=== PATIENT | female | born 1965 | race Caucasian/White ===

== ENCOUNTER 2018-11-03 10:56 | Emergency (ER) | payer BC ==
--- NOTE | 2018-11-03 11:24 | EDM.PDOC ---
<Ethan Siu - Last Filed: 11/03/18 13:30> ED HPI GENERAL MEDICAL PROBLEM - General Chief Complaint: Chest Pain Stated Complaint: PAIN IN LEFT ARM Time Seen by Provider: 11/03/18 11:12 - History of Present Illness INITIAL COMMENTS - FREE TEXT/NARRATIVE: Pt is seen in ER this morning for episodic chest, back, and shoulder pain. Over the past 2 days the patient has had 2 similar events each in the morning. The first episode started yesterday morning and began around 0730 and and resolved around 1000 the same day. The pain is characterized as a "stabbing" pain located along the lower LSB, L-scapula, and Left deltoid region with radiation down to mid forearm. The pay was intermittent and was primarily aggravated with laying supine. Pain was relieved with sitting up. There also was associated with shortness of breath and nausea. The patients second episode was this morning around the same time with similar symptoms, pt agreed that there was no change in severity or associated symptoms. Pt denies any recent trauma or illness. The patient has history of Cancer of the left brest, hypothyroidism , anxiety, as well as polycythemia vera for which she is currently oncologist. She also has a significant 30+ pk/yr smoking history. - Related Data Allergies Allergy/AdvReac Type Severity Reaction Status Date / Time aspirin Allergy Shaking Verified 11/03/18 11:20 docetaxel Allergy Anaphylactic Verified 11/03/18 11:20 Shock Penicillins Allergy Other Verified 11/03/18 11:20 Home Meds: Home Meds ALPRAZolam [Xanax] 1 mg PO TID PRN 11/03/18 [History] Exemestane 25 mg PO DAILY 11/03/18 [History] Levothyroxine [Synthroid] 100 mcg PO DAILY 11/03/18 [History] Sertraline [Zoloft] 100 mg PO BID 11/03/18 [History] Past Medical History Psychiatric History: Reports: Anxiety Other Hematologic History: Unspecified Blood disorder, History of therapeutic phlebotomy Oncologic (Cancer) History: Reports: Breast (Left breast, Surgical resection and Chemotherapy) - Past Surgical History Other Female Surgeries/Procedures: Resection of Left breast mass and regional lymph nodes Social & Family History - Tobacco Use Smoking Status *Q: Current Every Day Smoker Years of Tobacco use: 30 (Greater than) Packs/Tins Daily: 1 ED ROS GENERAL - Review of Systems Constitutional: Reports: No Symptoms. Denies: Fever, Chills, Night Sweats, Diaphoresis, Weight Loss HEENT: Reports: No Symptoms. Denies: Hearing Loss, Vision Change Respiratory: Reports: Wheezing, Cough (chronic). Denies: Shortness of Breath, Sputum, Hemoptysis Cardiovascular: Denies: Chest Pain, Edema, Lightheadedness, Palpitations Endocrine: Reports: No Symptoms GI/Abdominal: Reports: No Symptoms. Denies: Abdominal Pain, Nausea, Vomiting : Reports: No Symptoms. Denies: Dysuria, Flank Pain Musculoskeletal: Reports: No Symptoms. Denies: Neck Pain, Shoulder Pain, Arm Pain, Back Pain, Muscle Pain, Muscle Stiffness Skin: Reports: No Symptoms. Denies: Cyanosis, Jaundice, Mottled, Pallor, Diaphoresis, Dryness Neurological: Reports: No Symptoms. Denies: Confusion, Dizziness, Headache, Numbness, Paresthesia, Change in Speech, Gait Disturbance Psychiatric: Reports: Anxiety (controled with sertraline and ). Denies: Confusion ED EXAM, GENERAL - Physical Exam Exam: See Below Exam Limited By: No Limitations General Appearance: Alert, No Apparent Distress Eye Exam: Bilateral Eye: EOMI, PERRL Ears: Normal External Exam, Normal TMs Ear Exam: Bilateral Ear: Auricle Normal, Canal Normal, TM normal Head: Atraumatic, Normocephalic Neck: Normal Inspection. No: Carotid Bruit, Lymphadenopathy (L), Lymphadenopathy (R) Respiratory/Chest: No Respiratory Distress, Lungs Clear, Normal Breath Sounds, No Accessory Muscle Use, Other (Reproduction of some pain over left sternal boarder and left lateral boarder of posterior scapula). No: Crackles, Rales, Rhonchi, Wheezing, Pleural Rub Cardiovascular: Normal Peripheral Pulses, Regular Rate, Rhythm, No Edema, No Gallop, No JVD, No Murmur, No Rub. No: Friction Rub Peripheral Pulses: 2+: Carotid (L), Carotid (R), Brachial (L), Brachial (R), Radial (L), Radial (R) GI/Abdominal: Normal Bowel Sounds, Soft, Non-Tender, No Organomegaly, No Distention, No Abnormal Bruit, No Mass Extremities: Normal Inspection, No Pedal Edema Neurological: Alert, Oriented, CN II-XII Intact, Normal Cognition, Normal Gait, Normal Reflexes, No Motor/Sensory Deficits Psychiatric: Normal Affect, Normal Mood. No: Anxious Skin Exam: Warm, Dry, Intact, Normal Color, No Rash. No: Cyanosis, Ecchymosis, Jaundice, Mottled, Pallor Lymphatic: No Adenopathy (of the Head Neck or [place] bilaterally) Course - Vital Signs Last Recorded V/S: Last Vital Signs Temp 98.2 F 11/03/18 11:16 Pulse 68 11/03/18 13:23 Resp 16 11/03/18 11:16 BP 145/107 H 11/03/18 13:23 Pulse Ox 95 11/03/18 11:16 - Orders/Labs/Meds Orders: Active Orders 24 hr Category Date Time Status EKG Documentation Completion [RC] STAT Care 11/03/18 11:12 Active Peripheral IV Care [RC] . DIRECTED Care 11/03/18 13:11 Active Peripheral IV Insertion Adult [OM.PC] Routine Oth 11/03/18 13:11 Ordered Labs: Laboratory Tests 11/03/18 11/03/18 11/03/18 Range/Units 12:10 12:10 12:10 WBC 6.69 (3.98-10.04) K/mm3 RBC 6.30 H (3.98-5.22) M/mm3 Hgb 15.5 (11.2-15.7) gm/L Hct 50.3 H (34.1-44.9) % MCV 79.8 (79.4-94.8) fl MCH 24.6 L (25.6-32.2) pg MCHC 30.8 L (32.2-35.5) g/dl RDW Std Deviation 48.8 H (36.4-46.3) fL Plt Count 263 (182-369) K/mm3 MPV 10.7 (9.4-12.3) fl Neutrophils % (Manual) 83 H (40-60) % Band Neutrophils % 0 (0-10) % Lymphocytes % (Manual) 11 L (20-40) % Atypical Lymphs % 0 % Monocytes % (Manual) 6 (2-10) % Eosinophils % (Manual) 0 L (0.7-5.8) % Basophils % (Manual) 0 L (0.1-1.2) Platelet Estimate Adequate RBC Morph Comment Normal PT 10.8 (9.5-12.1) SECONDS INR 0.99 APTT 24 (24-31) SECONDS D-Dimer, Quantitative 0.22 (0.19-0.50) mg/L Sodium 142 (136-145) mEq/L Potassium 3.8 (3.5-5.1) mEq/L Chloride 103 (98-107) mEq/L Carbon Dioxide 32 (21-32) mEq/L Anion Gap 10.8 (5-15) BUN 8 (7-18) mg/dL Creatinine 0.8 (0.55-1.02) mg/dL Est Cr Clr Drug Dosing 69.42 mL/min Estimated GFR (MDRD) > 60 (>60) mL/min BUN/Creatinine Ratio 10.0 L (14-18) Glucose 113 H (74-106) mg/dL Calcium 10.1 (8.5-10.1) mg/dL Total Bilirubin 0.5 (0.2-1.0) mg/dL AST 46 H (15-37) U/L ALT 29 (14-59) U/L Alkaline Phosphatase 72 (46-116) U/L Troponin I 1.995 H* (0.00-0.056) ng/mL NT-Pro-B Natriuret Pep (0-125) pg/mL Total Protein 7.7 (6.4-8.2) g/dl Albumin 4.0 (3.4-5.0) g/dl Globulin 3.7 gm/dL Albumin/Globulin Ratio 1.1 (1-2) 11/03/18 Range/Units 12:10 WBC (3.98-10.04) K/mm3 RBC (3.98-5.22) M/mm3 Hgb (11.2-15.7) gm/L Hct (34.1-44.9) % MCV (79.4-94.8) fl MCH (25.6-32.2) pg MCHC (32.2-35.5) g/dl RDW Std Deviation (36.4-46.3) fL Plt Count (182-369) K/mm3 MPV (9.4-12.3) fl Neutrophils % (Manual) (40-60) % Band Neutrophils % (0-10) % Lymphocytes % (Manual) (20-40) % Atypical Lymphs % % Monocytes % (Manual) (2-10) % Eosinophils % (Manual) (0.7-5.8) % Basophils % (Manual) (0.1-1.2) Platelet Estimate RBC Morph Comment PT (9.5-12.1) SECONDS INR APTT (24-31) SECONDS D-Dimer, Quantitative (0.19-0.50) mg/L Sodium (136-145) mEq/L Potassium (3.5-5.1) mEq/L Chloride (98-107) mEq/L Carbon Dioxide (21-32) mEq/L Anion Gap (5-15) BUN (7-18) mg/dL Creatinine (0.55-1.02) mg/dL Est Cr Clr Drug Dosing mL/min Estimated GFR (MDRD) (>60) mL/min BUN/Creatinine Ratio (14-18) Glucose (74-106) mg/dL Calcium (8.5-10.1) mg/dL Total Bilirubin (0.2-1.0) mg/dL AST (15-37) U/L ALT (14-59) U/L Alkaline Phosphatase (46-116) U/L Troponin I (0.00-0.056) ng/mL NT-Pro-B Natriuret Pep 1332 H (0-125) pg/mL Total Protein (6.4-8.2) g/dl Albumin (3.4-5.0) g/dl Globulin gm/dL Albumin/Globulin Ratio (1-2) Meds: Medications Discontinued Medications Generic Name Dose Route Start Last Admin Trade Name Freq PRN Reason Stop Dose Admin Aspirin 324 mg 11/03/18 13:11 11/03/18 13:23 Aspirin PO 11/03/18 13:12 324 mg ONETIME ONE Administration Heparin Sodium (Porcine) 4,000 units 11/03/18 13:32 11/03/18 13:39 Heparin Sodium IVPUSH 11/03/18 13:33 4,000 units ONETIME ONE Administration Heparin Sodium/Dextrose 25,000 units in 500 mls @ 16.22 mls/hr 11/03/18 13:30 11/03/18 13:39 Heparin 25,000 Units In D5w 500 Ml IV 12 units/kg/hr TITRATE SHUN 16.22 mls/hr Administration Protocol 12 UNITS/KG/HR Metoprolol Tartrate 5 mg 11/03/18 13:11 11/03/18 13:23 Lopressor IVPUSH 11/03/18 13:12 5 mg ONETIME ONE Administration Simvastatin 80 mg 11/03/18 13:27 11/03/18 13:41 Zocor PO 11/03/18 13:28 80 mg ONETIME ONE Administration Sodium Chloride 10 ml 11/03/18 13:11 11/03/18 13:27 Saline Flush FLUSH 10 ml ASDIRECTED PRN Administration Keep Vein Open Departure - Departure Disposition: DC/Tfer to Acute Hospital 02 Clinical Impression: NSTEMI (non-ST elevated myocardial infarction) Referrals: Evelyne Moreno NP [Primary Care Provider] - Forms: ED Department Discharge - My Orders Last 24 Hours: My Active Orders 11/03/18 11:12 EKG Documentation Completion [RC] STAT 11/03/18 13:11 Peripheral IV Care [RC] . DIRECTED Peripheral IV Insertion Adult [OM.PC] Routine - Assessment/Plan Last 24 Hours: My Active Orders 11/03/18 11:12 EKG Documentation Completion [RC] STAT 11/03/18 13:11 Peripheral IV Care [RC] . DIRECTED Peripheral IV Insertion Adult [OM.PC] Routine <Raeann Lopez - Last Filed: 11/03/18 22:59> ED HPI GENERAL MEDICAL PROBLEM - General Source of Information: Reports: Patient, RN Notes Reviewed History Limitations: Reports: No Limitations - History of Present Illness INITIAL COMMENTS - FREE TEXT/NARRATIVE: I have read and reviewed the student's HPI and exam and agree with Torrey ADEN student. Chest Pain Score (Numeric/FACES): 8 ED ROS GENERAL - Review of Systems Review Of Systems: See Below ED EXAM, GENERAL - Physical Exam Exam: See Below Exam Limited By: No Limitations General Appearance: Alert, WD/WN, No Apparent Distress Eye Exam: Bilateral Eye: EOMI Ears: Normal External Exam, Normal TMs Nose: Normal Inspection Throat/Mouth: Normal Inspection, No Airway Compromise Head: Atraumatic, Normocephalic Neck: Normal Inspection Respiratory/Chest: No Respiratory Distress, Lungs Clear, Normal Breath Sounds, No Accessory Muscle Use Cardiovascular: Normal Peripheral Pulses, Regular Rate, Rhythm, No Murmur GI/Abdominal: Normal Bowel Sounds, Soft, Non-Tender, No Organomegaly, No Distention, No Abnormal Bruit, No Mass Extremities: Normal Inspection, No Pedal Edema, Normal Capillary Refill Neurological: Alert, Oriented, CN II-XII Intact, Normal Cognition, Normal Gait, Normal Reflexes, No Motor/Sensory Deficits Psychiatric: Normal Affect, Normal Mood Skin Exam: Warm, Dry, Intact, Normal Color, No Rash Lymphatic: No Adenopathy EKG INTERPRETATION EKG Date: 11/03/18 Time: 11:09 Rhythm: NSR Rate (Beats/Min): 82 [place]: Normal P-Wave: Present QRS: Normal ST-T: Normal QT: Normal EKG Interpretation Comments: Reviewed with Dr. Bell Course - Orders/Labs/Meds Labs: Laboratory Tests 11/03/18 11/03/18 11/03/18 Range/Units 12:10 12:10 12:10 WBC 6.69 (3.98-10.04) K/mm3 RBC 6.30 H (3.98-5.22) M/mm3 Hgb 15.5 (11.2-15.7) gm/L Hct 50.3 H (34.1-44.9) % MCV 79.8 (79.4-94.8) fl MCH 24.6 L (25.6-32.2) pg MCHC 30.8 L (32.2-35.5) g/dl RDW Std Deviation 48.8 H (36.4-46.3) fL Plt Count 263 (182-369) K/mm3 MPV 10.7 (9.4-12.3) fl Neutrophils % (Manual) 83 H (40-60) % Band Neutrophils % 0 (0-10) % Lymphocytes % (Manual) 11 L (20-40) % Atypical Lymphs % 0 % Monocytes % (Manual) 6 (2-10) % Eosinophils % (Manual) 0 L (0.7-5.8) % Basophils % (Manual) 0 L (0.1-1.2) Platelet Estimate Adequate RBC Morph Comment Normal PT 10.8 (9.5-12.1) SECONDS INR 0.99 APTT 24 (24-31) SECONDS D-Dimer, Quantitative 0.22 (0.19-0.50) mg/L Sodium 142 (136-145) mEq/L Potassium 3.8 (3.5-5.1) mEq/L Chloride 103 (98-107) mEq/L Carbon Dioxide 32 (21-32) mEq/L Anion Gap 10.8 (5-15) BUN 8 (7-18) mg/dL Creatinine 0.8 (0.55-1.02) mg/dL Est Cr Clr Drug Dosing 69.42 mL/min Estimated GFR (MDRD) > 60 (>60) mL/min BUN/Creatinine Ratio 10.0 L (14-18) Glucose 113 H (74-106) mg/dL Calcium 10.1 (8.5-10.1) mg/dL Total Bilirubin 0.5 (0.2-1.0) mg/dL AST 46 H (15-37) U/L ALT 29 (14-59) U/L Alkaline Phosphatase 72 (46-116) U/L Troponin I 1.995 H* (0.00-0.056) ng/mL NT-Pro-B Natriuret Pep (0-125) pg/mL Total Protein 7.7 (6.4-8.2) g/dl Albumin 4.0 (3.4-5.0) g/dl Globulin 3.7 gm/dL Albumin/Globulin Ratio 1.1 (1-2) 11/03/18 Range/Units 12:10 WBC (3.98-10.04) K/mm3 RBC (3.98-5.22) M/mm3 Hgb (11.2-15.7) gm/L Hct (34.1-44.9) % MCV (79.4-94.8) fl MCH (25.6-32.2) pg MCHC (32.2-35.5) g/dl RDW Std Deviation (36.4-46.3) fL Plt Count (182-369) K/mm3 MPV (9.4-12.3) fl Neutrophils % (Manual) (40-60) % Band Neutrophils % (0-10) % Lymphocytes % (Manual) (20-40) % Atypical Lymphs % % Monocytes % (Manual) (2-10) % Eosinophils % (Manual) (0.7-5.8) % Basophils % (Manual) (0.1-1.2) Platelet Estimate RBC Morph Comment PT (9.5-12.1) SECONDS INR APTT (24-31) SECONDS D-Dimer, Quantitative (0.19-0.50) mg/L Sodium (136-145) mEq/L Potassium (3.5-5.1) mEq/L Chloride (98-107) mEq/L Carbon Dioxide (21-32) mEq/L Anion Gap (5-15) BUN (7-18) mg/dL Creatinine (0.55-1.02) mg/dL Est Cr Clr Drug Dosing mL/min Estimated GFR (MDRD) (>60) mL/min BUN/Creatinine Ratio (14-18) Glucose (74-106) mg/dL Calcium (8.5-10.1) mg/dL Total Bilirubin (0.2-1.0) mg/dL AST (15-37) U/L ALT (14-59) U/L Alkaline Phosphatase (46-116) U/L Troponin I (0.00-0.056) ng/mL NT-Pro-B Natriuret Pep 1332 H (0-125) pg/mL Total Protein (6.4-8.2) g/dl Albumin (3.4-5.0) g/dl Globulin gm/dL Albumin/Globulin Ratio (1-2) Meds: Medications Discontinued Medications Generic Name Dose Route Start Last Admin Trade Name Freq PRN Reason Stop Dose Admin Aspirin 324 mg 11/03/18 13:11 11/03/18 13:23 Aspirin PO 11/03/18 13:12 324 mg ONETIME ONE Administration Heparin Sodium (Porcine) 4,000 units 11/03/18 13:32 11/03/18 13:39 Heparin Sodium IVPUSH 11/03/18 13:33 4,000 units ONETIME ONE Administration Heparin Sodium/Dextrose 25,000 units in 500 mls @ 16.22 mls/hr 11/03/18 13:30 11/03/18 13:39 Heparin 25,000 Units In D5w 500 Ml IV 12 units/kg/hr TITRATE SHUN 16.22 mls/hr Administration Protocol 12 UNITS/KG/HR Metoprolol Tartrate 5 mg 11/03/18 13:11 11/03/18 13:23 Lopressor IVPUSH 11/03/18 13:12 5 mg ONETIME ONE Administration Simvastatin 80 mg 11/03/18 13:27 11/03/18 13:41 Zocor PO 11/03/18 13:28 80 mg ONETIME ONE Administration Sodium Chloride 10 ml 11/03/18 13:11 11/03/18 13:27 Saline Flush FLUSH 10 ml ASDIRECTED PRN Administration Keep Vein Open - Re-Assessments/Exams Free Text/Narrative Re-Assessment/Exam: 11/03/18 11:50 Patient presents to the ED for evaluation of left arm pain/chest pain. Have ordered a cardiac workup to include a CBC, CMP, troponin, d-dimer, PT/PTT/INR, BNP for further evaluation of her symptoms. Although I suspect this to be musculoskeletal in nature I would like to rule out any cardiac or pulmonary involvement. The patient states that she has a history of polycythemia vera and feels as if her blood feels thick again, she does have an appointment with her cancer doctor on November 18 but is worried that she might need to have a therapeutic phlebotomy sooner than that. She states that she sees Evelyne Moreno in clinic and has had therapeutic phlebotomies done per her order before. If her cardiac workup comes back WNL, I would suggest that she be seen by Evelyne Moreno sooner than the November 18 appointment with her cancer doctor for possible therapeutic phlebotomy. 11/03/18 13:32 Patient's labs have returned and her troponin is elevated at 1.995, BNP is 1300. It appears that she is having a non-STEMI I have contacted [facility] for this Dr. Clark finance effectiveness manager, Dr. [facility] hospitalist has accepted the patient for inpatient care. They've recommended IV metoprolol 5 mg IV, 325mg of aspirin, heparin bolus, and simvastatin. These orders have been placed. Patient will be transferred via ambulance. Patient's chest x-ray shows mild emphysematous changes but nothing acute is appreciated. Departure - Departure Time of Disposition: 13:34 Reason for Transfer *Q: Other Condition: Fair
[2018-11-03] MEDS ORDERED: Sodium Chloride 0.9% 10 ML Syringe FLUSH PRN (13:11)
[2018-11-03] MEDS ORDERED: Metoprolol Tartrate 5 MG/5 ML SDV IVPUSH ONE (13:11)
[2018-11-03] MEDS ORDERED: Aspirin 81 MG Tab.Chew PO ONE (13:11)
[2018-11-03] MEDS ORDERED: Simvastatin 40 MG Tab PO ONE (13:27)
[2018-11-03] MEDS ORDERED: Heparin Sodium/D5W 25,000 UNITS/500 ML BAG IV SCH (13:30)
--- NOTE | 2018-11-03 13:31 | CR ---
Chest: Two views of the chest were obtained. Comparison: Previous chest x-ray of 10/09/11. Heart size and mediastinum are normal. Lungs are hyperinflated compatible with emphysematous change. Minimal scoliosis is noted within the spine. Impression: 1. Emphysematous change. Nothing acute is appreciated on two-view chest x-ray. Diagnostic code #2
[2018-11-03] MEDS ORDERED: Heparin Sodium 5,000 Units/ML Vial IVPUSH ONE (13:32)
== END 2018-11-03 14:15 ==
LOC: JD.ED 10:56
DX: I21.4 Non-ST elevation (NSTEMI) myocardial infarction (principal); F41.9 Anxiety disorder, unspecified; F17.210 Nicotine dependence, cigarettes, uncomplicated; Z79.899 Other long term (current) drug therapy; Z88.6 Allergy status to analgesic agent; Z88.0 Allergy status to penicillin; Z88.8 Allergy status to other drugs, medicaments and biological substances
CPT/HCPCS: 36415; 71046; 80053; 83880; 84484; 85007; 85027; 85379; 85610; 85730; 93005; 96365; 96375; 99285; A9270; J1644; J3490; 93010

== ENCOUNTER 2018-11-09 08:38 | Emergency (ER) | payer BC ==
[2018-11-09] MEDS ORDERED: Nitroglycerin 0.4 MG Tab.SL SL ONE (08:52)
[2018-11-09] MEDS ORDERED: Sodium Chloride 0.9% 10 ML Syringe FLUSH PRN (08:52)
--- NOTE | 2018-11-09 09:33 | EDM.PDOC ---
ED HPI GENERAL MEDICAL PROBLEM - General Chief Complaint: Chest Pain Stated Complaint: HAVING SYMPTOMS OF A HEART ATTACK Time Seen by Provider: 11/09/18 08:43 Source of Information: Reports: Patient History Limitations: Reports: No Limitations - History of Present Illness INITIAL COMMENTS - FREE TEXT/NARRATIVE: The patient presents with chest pain and shortness of breath. The patient woke up at 6:30am with this. She recently had a nonSTEMI. She was seen here last week and found to have an elevated troponin. She was sent to [place] and she had a stent. She was discharged on and she was doing good until this morning. She has no fever, chills, cough, congestion or runny nose. She quit smoking last week. She has no history of HTN, high cholesterol or diabetes. She took an aspirin and nitro for pain. That helped some. Onset: Gradual Duration: Hour(s): Location: Reports: Chest Quality: Reports: Other (pain) Severity: Moderate Improves with: Reports: None Worsens with: Reports: None Associated Symptoms: Reports: Chest Pain, Shortness of Breath. Denies: Cough, Fever/Chills, Headaches, Nausea/Vomiting Treatments SENIOR CLIMATE ADVISOR: Reports: Nitroglycerin Chest Pain Score (Numeric/FACES): 8 - Related Data Allergies Allergy/AdvReac Type Severity Reaction Status Date / Time aspirin Allergy Shaking Verified 11/09/18 08:58 docetaxel Allergy Anaphylactic Verified 11/09/18 08:58 Shock Penicillins Allergy Other Verified 11/09/18 08:58 Home Meds: Home Meds ALPRAZolam [Xanax] 1 mg PO TID PRN 11/03/18 [History] Exemestane 25 mg PO DAILY 11/03/18 [History] Levothyroxine [Synthroid] 100 mcg PO DAILY 11/03/18 [History] Sertraline [Zoloft] 100 mg PO BID 11/03/18 [History] Metoprolol Succinate [Toprol Xl] 12.5 mg PO BID 11/09/18 [History] Nitroglycerin 0.4 mg SL ASDIRECTED 11/09/18 [History] Ticagrelor [Brilinta] 90 mg PO DAILY 11/09/18 [History] atorvaSTATin [Lipitor] 40 mg PO DAILY 11/09/18 [History] Past Medical History HEENT History: Reports: Impaired Vision Psychiatric History: Reports: Anxiety Endocrine/Metabolic History: Reports: Hypothyroidism Other Hematologic History: Unspecified Blood disorder, History of therapeutic phlebotomy Oncologic (Cancer) History: Reports: Breast (Left breast, Surgical resection and Chemotherapy) - Past Surgical History Other Female Surgeries/Procedures: Resection of Left breast mass and regional lymph nodes ED ROS GENERAL - Review of Systems Review Of Systems: See Below Constitutional: Reports: No Symptoms HEENT: Reports: No Symptoms Respiratory: Reports: Shortness of Breath Cardiovascular: Reports: Chest Pain Endocrine: Reports: No Symptoms GI/Abdominal: Reports: No Symptoms : Reports: No Symptoms Musculoskeletal: Reports: No Symptoms ED EXAM, GENERAL - Physical Exam Exam: See Below Exam Limited By: No Limitations General Appearance: Alert, No Apparent Distress Ears: Normal External Exam Nose: Normal Inspection Head: Atraumatic, Normocephalic Neck: Normal Inspection Respiratory/Chest: No Respiratory Distress, Lungs Clear, Normal Breath Sounds Cardiovascular: Regular Rate, Rhythm, No Edema, No Murmur GI/Abdominal: Soft, Non-Tender, No Organomegaly, No Mass Back Exam: Normal Inspection Extremities: Other (Ecchymosis to the rigt forearm) EKG INTERPRETATION EKG Date: 11/09/18 Time: 08:44 Rhythm: NSR Rate (Beats/Min): 64 [place]: Normal P-Wave: Present QRS: Normal ST-T: Normal QT: Normal EKG Interpretation Comments: Q waves in the inferior leads Course - Vital Signs Last Recorded V/S: Last Vital Signs Temp 98.5 F 11/09/18 08:58 Pulse 63 11/09/18 08:58 Resp 18 11/09/18 08:58 BP 123/81 11/09/18 09:18 Pulse Ox 97 11/09/18 08:58 - Orders/Labs/Meds Orders: Active Orders 24 hr Category Date Time Status Cardiac Monitoring [RC] . DIRECTED Care 11/09/18 08:52 Active EKG Documentation Completion [RC] STAT Care 11/09/18 08:53 Active Oxygen Therapy [RC] PRN Care 11/09/18 08:52 Active Peripheral IV Care [RC] . DIRECTED Care 11/09/18 08:53 Active Sodium Chloride 0.9% [Saline Flush] Med 11/09/18 08:52 Active 10 ml FLUSH ASDIRECTED PRN Peripheral IV Insertion Adult [OM.PC] Stat Oth 11/09/18 08:52 Ordered Medication Orders Sodium Chloride (Saline Flush) 10 ml FLUSH ASDIRECTED PRN PRN Reason: Keep Vein Open Last Admin: 11/09/18 09:18 Dose: 10 ml Labs: Laboratory Tests 11/09/18 11/09/18 Range/Units 08:59 08:59 WBC 6.93 (3.98-10.04) K/mm3 RBC 5.32 H (3.98-5.22) M/mm3 Hgb 12.9 (11.2-15.7) gm/L Hct 42.9 (34.1-44.9) % MCV 80.6 (79.4-94.8) fl MCH 24.2 L (25.6-32.2) pg MCHC 30.1 L (32.2-35.5) g/dl RDW Std Deviation 50.6 H (36.4-46.3) fL Plt Count 240 (182-369) K/mm3 MPV 11.3 (9.4-12.3) fl Neut % (Auto) 70.1 (34.0-71.1) % Lymph % (Auto) 16.9 L (19.3-51.7) % [place] % (Auto) 10.4 (4.7-12.5) % Eos % (Auto) 1.9 (0.7-5.8) Baso % (Auto) 0.6 (0.1-1.2) % Neut # (Auto) 4.86 (1.56-6.13) K/mm3 Lymph # (Auto) 1.17 L (1.18-3.74) K/mm3 [place] # (Auto) 0.72 H (0.24-0.36) K/mm3 Eos # (Auto) 0.13 (0.04-0.36) K/mm3 Baso # (Auto) 0.04 (0.01-0.08) K/mm3 Sodium 142 (136-145) mEq/L Potassium 3.6 (3.5-5.1) mEq/L Chloride 103 (98-107) mEq/L Carbon Dioxide 30 (21-32) mEq/L Anion Gap 12.6 (5-15) BUN 11 (7-18) mg/dL Creatinine 0.9 (0.55-1.02) mg/dL Est Cr Clr Drug Dosing TNP Estimated GFR (MDRD) > 60 (>60) mL/min BUN/Creatinine Ratio 12.2 L (14-18) Glucose 96 (74-106) mg/dL Calcium 8.8 (8.5-10.1) mg/dL Total Bilirubin 0.4 (0.2-1.0) mg/dL AST 32 (15-37) U/L ALT 36 (14-59) U/L Alkaline Phosphatase 56 (46-116) U/L Troponin I 17.554 H* (0.00-0.056) ng/mL Total Protein 7.3 (6.4-8.2) g/dl Albumin 3.3 L (3.4-5.0) g/dl Globulin 4.0 gm/dL Albumin/Globulin Ratio 0.8 L (1-2) Meds: Medications Generic Name Dose Route Start Last Admin Trade Name Freq PRN Reason Stop Dose Admin Sodium Chloride 10 ml 11/09/18 08:52 11/09/18 09:18 Saline Flush FLUSH 10 ml ASDIRECTED PRN Administration Keep Vein Open Discontinued Medications Generic Name Dose Route Start Last Admin Trade Name Freq PRN Reason Stop Dose Admin Nitroglycerin 0.4 mg 11/09/18 08:52 11/09/18 09:18 Nitrostat SL 11/09/18 08:53 0.4 mg ONETIME ONE Administration - Re-Assessments/Exams Free Text/Narrative Re-Assessment/Exam: 11/09/18 09:33 I ordered an IV saline lock, EKG, CXR, labs, and nitro. She took aspirin and nitro at home. 11/09/18 10:21 Her EKG shows a NSR with some Q waves in the inferior leads. Her CXR looks good. Her CBC and CMP look good. Her troponin I was elevated at 17.554. This could be still elevated from the cath. I called [facility] in [place] and talked with the store sales leader car electronics installer Dr Shaver. He also did the heart cath. He recommended we send her down and they will trend the troponins and see what to do from there. Her pain is better but it still will hurt when she takes a deep breath. I will be sending her by ambulance. I will send her by ambulance. He did not recommend heparin at this time. 11/09/18 10:27 I also talked with the hospitalist Dr Macdonald and she wanted a D-dimer. I will add that. Departure - Departure Time of Disposition: 10:30 Disposition: DC/Tfer to Acute Hospital 02 Reason for Transfer *Q: Other Condition: Serious Clinical Impression: Elevated troponin I level Chest pain Qualifiers: Chest pain type: unspecified Qualified Code(s): R07.9 - Chest pain, unspecified Referrals: Evelyne Moreno NP [Primary Care Provider] - Forms: ED Department Discharge - My Orders Last 24 Hours: My Active Orders 11/09/18 08:52 Cardiac Monitoring [RC] . DIRECTED Oxygen Therapy [RC] PRN Sodium Chloride 0.9% [Saline Flush] 10 ml FLUSH ASDIRECTED PRN Peripheral IV Insertion Adult [OM.PC] Stat 11/09/18 08:53 EKG Documentation Completion [RC] STAT Peripheral IV Care [RC] . DIRECTED - Assessment/Plan Last 24 Hours: My Active Orders 11/09/18 08:52 Cardiac Monitoring [RC] . DIRECTED Oxygen Therapy [RC] PRN Sodium Chloride 0.9% [Saline Flush] 10 ml FLUSH ASDIRECTED PRN Peripheral IV Insertion Adult [OM.PC] Stat 11/09/18 08:53 EKG Documentation Completion [RC] STAT Peripheral IV Care [RC] . DIRECTED
--- NOTE | 2018-11-09 09:45 | CR ---
Chest: Portable view of the chest was obtained. Comparison: Prior chest x-ray of 11/03/18. Heart size appears within normal limits for portable technique. Lungs are clear with no acute parenchymal change. Bony structures are grossly intact. Impression: 1. Nothing acute is seen on portable chest x-ray. Diagnostic code #1
[2018-11-09] MEDS ORDERED: Heparin Sodium 5,000 Units/ML Vial IVPUSH ONE (10:35)
[2018-11-09] MEDS ORDERED: Heparin Sodium/D5W 25,000 UNITS/500 ML BAG IV SCH (10:45)
== END 2018-11-09 11:32 ==
LOC: JD.ED 08:38
DX: R07.9 Chest pain, unspecified (principal); R79.89 Other specified abnormal findings of blood chemistry; R58 Hemorrhage, not elsewhere classified; E03.9 Hypothyroidism, unspecified; I25.2 Old myocardial infarction; Z95.5 Presence of coronary angioplasty implant and graft; Z79.899 Other long term (current) drug therapy; Z88.0 Allergy status to penicillin; Z88.6 Allergy status to analgesic agent; Z88.8 Allergy status to other drugs, medicaments and biological substances
CPT/HCPCS: 36415; 71045; 80053; 84484; 85025; 85379; 93005; 96365; 99285; A9270; J1644; 93010

== ENCOUNTER 2021-03-26 13:10 | Observation (INO) | payer BC ==
[2021-03-26] MEDS ORDERED: Sodium Chloride 0.9% 1,000 ML IV STA ×2 (14:16→15:57)
[2021-03-26] MEDS ORDERED: Ondansetron 4 MG/2 ML SDV IVPUSH ONE (14:16)
[2021-03-26] MEDS ORDERED: Sodium Chloride 0.9% 10 ML Syringe FLUSH PRN (14:16)
--- NOTE | 2021-03-26 14:38 | EDM.PDOC ---
ED HPI GENERAL MEDICAL PROBLEM - General Chief Complaint: Gastrointestinal Problem Stated Complaint: CHILLS NAUSEA VOMITING Time Seen by Provider: 03/26/21 13:39 Source of Information: Reports: Patient, RN Notes Reviewed History Limitations: Reports: No Limitations - History of Present Illness INITIAL COMMENTS - FREE TEXT/NARRATIVE: Patient is a 56-year-old female presenting to the emergency department with complaints of 3-day history of nausea, vomiting, and diarrhea. She reports "dry heaves "fairly frequently, however she has only had 4 episodes of actual vomiting. She has been able to keep down food and liquids. She has had chills but no known fever. She has a history of tremors for the last 10 years which she has been told is either result of her chemotherapy or that her B12 got too low. She feels that over the last few days, her tremor has worsened. Has some generalized abdominal discomfort with heaving but no pain at rest. She has had some intermittent diarrhea as well. She has been unable to take any [id number] nausea medications as they contain aspirin which she states will make her tremors worse. Patient did have both Covid vaccinations. - Related Data Allergies Allergy/AdvReac Type Severity Reaction Status Date / Time docetaxel Allergy Anaphylactic Verified 03/26/21 13:45 Shock Penicillins Allergy Other Verified 03/26/21 13:45 aspirin AdvReac Shaking Verified 03/27/21 11:21 levofloxacin [From Levaquin] AdvReac Pain Verified 03/27/21 11:21 Home Meds: Home Meds Sertraline [Zoloft] 100 mg PO BID 11/03/18 [History] Metoprolol Succinate [Toprol Xl] 25 mg PO BID 11/09/18 [History] Nitroglycerin 0.4 mg SL ASDIRECTED 11/09/18 [History] Ticagrelor [Brilinta] 90 mg PO BID 11/09/18 [History] atorvaSTATin [Lipitor] 40 mg PO DAILY 11/09/18 [History] Aspirin [[place] Aspirin] 81 mg PO DAILY 11/26/18 [History] ALPRAZolam [Xanax] 1 mg PO TID PRN 03/27/21 [History] Acetaminophen with Codeine [Acetaminophen-Cod #3] 1 tab PO Q4HR PRN 03/27/21 [History] Furosemide [Lasix] 20 mg PO DAILY 03/27/21 [History] Gabapentin [Neurontin] 100 mg PO TID 03/27/21 [History] Multivit-Minerals/Folic Acid [Multivitamin Gummies] 1 tab PO DAILY 03/27/21 [History] cilostazoL [Cilostazol] 100 mg PO BID 03/27/21 [History] Past Medical History HEENT History: Reports: Impaired Vision Psychiatric History: Reports: Anxiety Endocrine/Metabolic History: Reports: Hypothyroidism Other Hematologic History: Unspecified Blood disorder, History of therapeutic phlebotomy Oncologic (Cancer) History: Reports: Breast - Past Surgical History Other Female Surgeries/Procedures: Resection of Left breast mass and regional lymph nodes Oncologic Surgical History: Reports: Mastectomy Social & Family History - Tobacco Use Tobacco Use Status *Q: Current Every Day Tobacco User Years of Tobacco use: 23 Packs/Tins Daily: 0.5 - Recreational Drug Use Recreational Drug Use: Yes Drug Use in Last 12 Months: Yes Recreational Drug Type: Reports: Marijuana/Hashish Recreational Drug Use Frequency: Weekly ED ROS GENERAL - Review of Systems Review Of Systems: Comprehensive ROS is negative, except as noted in HPI. ED EXAM, GI/ABD - Physical Exam Exam: See Below Exam Limited By: No Limitations General Appearance: Alert, WD/WN, No Apparent Distress Respiratory/Chest: No Respiratory Distress, Lungs Clear, Normal Breath Sounds, No Accessory Muscle Use, Chest Non-Tender Cardiovascular: Normal Peripheral Pulses, Regular Rate, Rhythm, No Edema, No Gallop, No JVD, No Murmur, No Rub GI/Abdominal Exam: Normal Bowel Sounds, Soft, No Organomegaly, No Distention, No Abnormal Bruit, No Mass, Pelvis Stable, Tender (mild generalized tenderness) Neurological: Alert, Oriented, CN II-XII Intact, Normal Cognition, Normal Reflexes, No Motor/Sensory Deficits, Other (slight tremor) Psychiatric: Normal Affect, Normal Mood Skin Exam: Warm, Dry, Intact, Normal Color, No Rash #1 Interpretation EKG Date: 03/26/21 Time: 14:46 Rhythm: NSR Rate (Beats/Min): 62 [place]: Normal P-Wave: Present QRS: Normal ST-T: Normal QT: Normal EKG Interpretation Comments: Sinus rhythm at 62/min. Nonspecific intraventricular conduction delay Decreased voltage limb leads T wave flattening in limb leads and inverted in V1 through V6-consider anterior wall ischemia-QTC mildly prolonged EKG interpreted by Dr. Lolis VALDES Course - Vital Signs Last Recorded V/S: Last Vital Signs Temp 97.5 F 03/27/21 12:29 Pulse 55 L 03/27/21 12:29 Resp 16 03/27/21 12:29 BP 83/58 L 03/27/21 12:29 Pulse Ox 94 L 03/27/21 12:29 - Orders/Labs/Meds Orders: Active Orders 24 hr Category Date Time Status STOOL CULTURE/SHIGA TOXIN [MREF] Stat Lab 03/27/21 05:45 Received Labs: Laboratory Tests 03/26/21 03/26/21 03/26/21 Range/Units 14:16 15:10 15:10 WBC 4.58 (3.98-10.04) K/mm3 RBC 4.62 (3.98-5.22) M/mm3 Hgb 15.3 D (11.2-15.7) gm/dl Hct 42.4 (34.1-44.9) % MCV 91.8 D (79.4-94.8) fl MCH 33.1 H (25.6-32.2) pg MCHC 36.1 H (32.2-35.5) g/dl RDW Std Deviation 43.0 (36.4-46.3) fL Plt Count 217 (182-369) K/mm3 MPV 10.5 (9.4-12.3) fl Neut % (Auto) 70.3 (34.0-71.1) % Lymph % (Auto) 22.7 (19.3-51.7) % [place] % (Auto) 6.8 (4.7-12.5) % Eos % (Auto) 0 L (0.7-5.8) Baso % (Auto) 0.2 (0.1-1.2) % Neut # (Auto) 3.22 (1.56-6.13) K/mm3 Lymph # (Auto) 1.04 L (1.18-3.74) K/mm3 [place] # (Auto) 0.31 (0.24-0.36) K/mm3 Eos # (Auto) 0.00 L (0.04-0.36) K/mm3 Baso # (Auto) 0.01 (0.01-0.08) K/mm3 Sodium 138 (136-145) mEq/L Potassium 2.3 L* (3.5-5.1) mEq/L Chloride 94 L (98-107) mEq/L Carbon Dioxide 35 H (21-32) mEq/L Anion Gap 11.3 (5-15) BUN 15 (7-18) mg/dL Creatinine 1.1 H (0.55-1.02) mg/dL Est Cr Clr Drug Dosing 44.45 mL/min Estimated GFR (MDRD) 51 (>60) mL/min BUN/Creatinine Ratio 13.6 L (14-18) Glucose 103 H (70-99) mg/dL Calcium 8.3 L (8.5-10.1) mg/dL Magnesium 1.9 (1.8-2.4) mg/dL Total Bilirubin 1.1 H (0.2-1.0) mg/dL AST 135 H (15-37) U/L ALT 54 (14-59) U/L Alkaline Phosphatase 46 (46-116) U/L Troponin I < 0.017 (0.00-0.056) ng/mL C-Reactive Protein <0.2 (<1.0) mg/dL Total Protein 6.3 L (6.4-8.2) g/dl Albumin 3.6 (3.4-5.0) g/dl Globulin 2.7 gm/dL Albumin/Globulin Ratio 1.3 (1-2) Urine Color (Yellow) Urine Appearance (Clear) Urine pH (5.0-8.0) Ur Specific [place] (1.005-1.030) Urine Protein (Negative) Urine Glucose (UA) (Negative) Urine Ketones (Negative) Urine Occult Blood (Negative) Urine Nitrite (Negative) Urine Bilirubin (Negative) Urine Urobilinogen (0.2-1.0) Ur Leukocyte Esterase (Negative) Urine RBC (0-5) /hpf Urine WBC (0-5) /hpf Ur Epithelial Cells (0-5) /hpf Urine Bacteria (FEW) /hpf Urine Mucus (FEW) /hpf SARS-CoV-2 RNA (MEKA) (NEGATIVE) 03/26/21 03/26/21 Range/Units 16:07 16:37 WBC (3.98-10.04) K/mm3 RBC (3.98-5.22) M/mm3 Hgb (11.2-15.7) gm/dl Hct (34.1-44.9) % MCV (79.4-94.8) fl MCH (25.6-32.2) pg MCHC (32.2-35.5) g/dl RDW Std Deviation (36.4-46.3) fL Plt Count (182-369) K/mm3 MPV (9.4-12.3) fl Neut % (Auto) (34.0-71.1) % Lymph % (Auto) (19.3-51.7) % [place] % (Auto) (4.7-12.5) % Eos % (Auto) (0.7-5.8) Baso % (Auto) (0.1-1.2) % Neut # (Auto) (1.56-6.13) K/mm3 Lymph # (Auto) (1.18-3.74) K/mm3 [place] # (Auto) (0.24-0.36) K/mm3 Eos # (Auto) (0.04-0.36) K/mm3 Baso # (Auto) (0.01-0.08) K/mm3 Sodium (136-145) mEq/L Potassium (3.5-5.1) mEq/L Chloride (98-107) mEq/L Carbon Dioxide (21-32) mEq/L Anion Gap (5-15) BUN (7-18) mg/dL Creatinine (0.55-1.02) mg/dL Est Cr Clr Drug Dosing mL/min Estimated GFR (MDRD) (>60) mL/min BUN/Creatinine Ratio (14-18) Glucose (70-99) mg/dL Calcium (8.5-10.1) mg/dL Magnesium (1.8-2.4) mg/dL Total Bilirubin (0.2-1.0) mg/dL AST (15-37) U/L ALT (14-59) U/L Alkaline Phosphatase (46-116) U/L Troponin I (0.00-0.056) ng/mL C-Reactive Protein (<1.0) mg/dL Total Protein (6.4-8.2) g/dl Albumin (3.4-5.0) g/dl Globulin gm/dL Albumin/Globulin Ratio (1-2) Urine Color Yellow (Yellow) Urine Appearance Clear (Clear) Urine pH 6.5 (5.0-8.0) Ur Specific [place] 1.025 (1.005-1.030) Urine Protein 1+ H (Negative) Urine Glucose (UA) Negative (Negative) Urine Ketones 1+ H (Negative) Urine Occult Blood Negative (Negative) Urine Nitrite Negative (Negative) Urine Bilirubin 2+ H (Negative) Urine Urobilinogen 1.0 (0.2-1.0) Ur Leukocyte Esterase Trace H (Negative) Urine RBC 0-5 (0-5) /hpf Urine WBC 0-5 (0-5) /hpf Ur Epithelial Cells 5-10 H (0-5) /hpf Urine Bacteria Few (FEW) /hpf Urine Mucus Moderate H (FEW) /hpf SARS-CoV-2 RNA (MEKA) Negative (NEGATIVE) Meds: Medications Discontinued Medications Generic Name Dose Route Start Last Admin Trade Name Freq PRN Reason Stop Dose Admin Acetaminophen 650 mg 03/26/21 17:20 Acetaminophen 325 Mg Tab PO Q4H PRN Pain (Mild 1-3)/fever Alprazolam 1 mg 03/27/21 06:45 Alprazolam 1 Mg Tab PO TID PRN Anxiety Cilostazol 100 mg 03/27/21 09:00 03/27/21 08:34 Cilostazol 100 Mg Tab PO 100 mg BID SHUN Administration Docusate Sodium 100 mg 03/26/21 17:20 Docusate Sodium 100 Mg Cap PO BID PRN Constipation Enoxaparin Sodium 40 mg 03/27/21 09:00 03/27/21 08:32 Enoxaparin 40 Mg/0.4 Ml Syringe SUBCUT 40 mg DAILY SHUN Administration Furosemide 20 mg 03/27/21 09:00 03/27/21 08:34 Furosemide 20 Mg Tab PO Not Given DAILY SHUN Gabapentin 100 mg 03/27/21 09:00 03/27/21 08:34 Gabapentin 100 Mg Cap PO 100 mg TID SHUN Administration Sodium Chloride 1,000 mls @ 999 mls/hr 03/26/21 14:16 03/26/21 15:10 Normal Saline IV 03/26/21 15:16 999 mls/hr NOW STA Administration Sodium Chloride 1,000 mls @ 150 mls/hr 03/26/21 15:57 03/26/21 16:04 Normal Saline IV 03/26/21 22:36 150 mls/hr NOW STA Administration Potassium Chloride 10 meq/ 100 mls @ 100 mls/hr 03/26/21 16:00 03/27/21 02:23 Premix IV 03/26/21 23:59 100 mls/hr Q1H SHUN Administration Sodium Chloride 1,000 mls @ 75 mls/hr 03/26/21 17:30 03/27/21 10:50 Normal Saline IV 75 mls/hr ASDIRECTED SHUN Administration Magnesium Sulfate 2 gm/ Premix 50 mls @ 25 mls/hr 03/27/21 06:49 03/27/21 07:49 IV 03/27/21 08:48 25 mls/hr ONETIME ONE Administration Sodium Chloride 500 mls @ 999 mls/hr 03/27/21 14:21 03/27/21 14:43 Normal Saline IV 03/27/21 14:51 999 mls/hr .BOLUS ONE Administration Magnesium Oxide 400 mg 03/27/21 09:00 03/27/21 09:00 Magnesium Oxide 400 Mg Tab PO 03/27/21 09:01 400 mg ONETIME ONE Administration Metoprolol Succinate 25 mg 03/27/21 09:00 03/27/21 08:34 Metoprolol Succinate 25 Mg Tab.Er PO 25 mg BID SHUN Administration Nicotine 14 mg 03/26/21 17:30 03/27/21 08:33 Nicotine 14 Mg/24 Hr Patch TRDERM Not Given DAILY SHUN Nitroglycerin 0.4 mg 03/27/21 11:15 Nitroglycerin 0.4 Mg Tab.Sl SL ASDIRECTED PRN chest pain Ondansetron HCl 4 mg 03/26/21 14:16 03/26/21 15:10 Ondansetron 4 Mg/2 Ml Sdv IVPUSH 03/26/21 14:17 4 mg ONETIME ONE Administration Ondansetron HCl 4 mg 03/26/21 17:20 Ondansetron 4 Mg Tab.Dis PO Q4H PRN nausea, able to take PO Oxycodone HCl 5 mg 03/26/21 17:20 Oxycodone 5 Mg Tab PO Q4H PRN Pain (moderate 4-6) Potassium Chloride 40 meq 03/26/21 16:01 03/26/21 16:27 Potassium Chloride 20 Meq Tab.Er PO 03/26/21 16:02 40 meq ONETIME ONE Administration Potassium Chloride 40 meq 03/27/21 09:00 03/27/21 09:00 Potassium Chloride 20 Meq Tab.Er PO 03/27/21 09:01 40 meq ONETIME ONE Administration Sertraline HCl 100 mg 03/27/21 09:00 03/27/21 08:34 Sertraline 50 Mg Tab PO 100 mg BID SHUN Administration Sodium Chloride 10 ml 03/26/21 14:16 03/26/21 15:10 Sodium Chloride 0.9% 10 Ml Syringe FLUSH 10 ml ASDIRECTED PRN Administration Keep Vein Open Temazepam 15 mg 03/26/21 17:20 Temazepam 15 Mg Cap PO BEDTIME PRN Sleep Ticagrelor 90 mg 03/27/21 09:00 03/27/21 08:33 Ticagrelor 90 Mg Tab PO 90 mg BID SHUN Administration Vit A/Vit C/Vit E/Selen/Cu/Zn/Lutei 1 tab 03/28/21 09:00 Multivitamins With Minerals/Folic Acid/Lutein/Zeaxanth Tab PO DAILY SHUN - Re-Assessments/Exams Free Text/Narrative Re-Assessment/Exam: 03/26/21 1600 Hematology was significant for potassium low at 2.3, chloride 94, CO2 35, creatinine 1.1, AST 135. Patient will require admission for hypokalemia. I have ordered 40 mEq of oral potassium as well as 9K riders. Have ordered Covid screen pending admission. 03/26/21 17:10 Case was discussed with hospitalist, Dr. Haji. He has accepted the patient for admission for hypokalemia. Departure - Departure Time of Disposition: 17:10 Disposition: Admitted As Inpatient 65 Condition: Good Clinical Impression: Hypokalemia due to excessive gastrointestinal loss of potassium - Discharge Information Sepsis Event Note (ED) - Evaluation Sepsis Screening Result: No Definite Risk
--- NOTE | 2021-03-26 15:05 | CR ---
Chest: 2 views of the chest were obtained. Comparison: Prior chest x-rays of 11/03/18 and 11/09/18. Lungs are hyperinflated. This causes blunting of the costophrenic angles on both sides which are expected. Lungs are oligemic within both upper lungs. Mild interstitial change is seen within both lower lungs which appear chronic. No acute parenchymal change is seen. Bony structures appear within normal limits for the patient's age. Impression: 1. Emphysematous change as described above. 2. Nothing acute is appreciated. Diagnostic code #2
[2021-03-26] MEDS ORDERED: Potassium Chloride 20 MEQ Tab.ER PO ONE (16:01)
[2021-03-26] MEDS: Potassium Chloride 10 MEQ in Premix Bag 1 BAG IV SCH ×6 (16:04→23:21)
--- NOTE | 2021-03-26 17:19 | PCM.HP.2 ---
H&P History of Present Illness - General Date of Service: 03/26/21 Admit Problem/Dx: Intractable nausea and vomiting with diarrhea, severe hypokalemia. Hypokalemia due to GI loss. Source of Information: Patient History Limitations: Reports: No Limitations - History of Present Illness Initial Comments - Free Text/Narative: The patient is a 56-year-old lady who has presented to the emergency department primarily out of concern for severe intractable nausea and vomiting with diarrhea. The patient reports that this has been going on for approximately 2 days. She has no aggravating or relieving factors. The patient says further that she may have eaten some bad salad 2 days ago. The patient's is not sick and he has not eaten the same foods. The patient was found to be severely hypokalemic in the emergency department and she was admitted secondary to replacement of potassium as well as monitoring of her electrolytes and telemetry. The telemetry has shown possible EKG changes secondary to hypokalemia. Onset of Symptoms: Reports: Gradual Duration of Symptoms: Reports: Day(s): Location: Reports: Abdomen Quality: Reports: Dull Severity: Mild Improves with: Reports: None Worsens with: Reports: None Context: Denies: Sick Contact Associated Symptoms: Reports: Nausea/Vomiting, Weakness. Denies: Chest Pain, Fever/Chills - Related Data Allergies/Adverse Reactions: Allergies Allergy/AdvReac Type Severity Reaction Status Date / Time aspirin Allergy Shaking Verified 03/26/21 13:45 docetaxel Allergy Anaphylactic Verified 03/26/21 13:45 Shock levofloxacin [From Levaquin] Allergy Pain Verified 03/26/21 13:45 Penicillins Allergy Other Verified 03/26/21 13:45 Home Medications: Home Meds ALPRAZolam [Xanax] 1 mg PO TID PRN 11/03/18 [History] Exemestane 25 mg PO DAILY 11/03/18 [History] Levothyroxine [Synthroid] 100 mcg PO DAILY 11/03/18 [History] Sertraline [Zoloft] 100 mg PO BID 11/03/18 [History] Metoprolol Succinate [Toprol Xl] 25 mg PO BID 11/09/18 [History] Nitroglycerin 0.4 mg SL ASDIRECTED 11/09/18 [History] Ticagrelor [Brilinta] 90 mg PO BID 11/09/18 [History] atorvaSTATin [Lipitor] 40 mg PO DAILY 11/09/18 [History] Aspirin [Mathis Aspirin] 81 mg PO DAILY 11/26/18 [History] Multivitamin [Multivitamins] 1 each PO DAILY 11/26/18 [History] Past Medical History HEENT History: Reports: Impaired Vision Cardiovascular History: Reports: CAD, NC, PTCA Respiratory History: Reports: COPD Gastrointestinal History: Reports: None Genitourinary History: Reports: None Musculoskeletal History: Reports: None Neurological History: Reports: Other (See Below) (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) Psychiatric History: Reports: Anxiety Endocrine/Metabolic History: Reports: Hypothyroidism Other Hematologic History: Unspecified Blood disorder, History of therapeutic phlebotomy Oncologic (Cancer) History: Reports: Breast (10 years ago) - Past Surgical History Other Female Surgeries/Procedures: Resection of Left breast mass and regional lymph nodes Oncologic Surgical History: Reports: Mastectomy Social & Family History - Tobacco Use Tobacco Use Status *Q: Current Every Day Tobacco User Years of Tobacco use: 23 Packs/Tins Daily: 0.5 - Alcohol Use Alcohol Use History: No - Recreational Drug Use Recreational Drug Use: Yes Drug Use in Last 12 Months: Yes Recreational Drug Type: Reports: Marijuana/Hashish Recreational Drug Use Frequency: Weekly - Living Situation & Occupation Living situation: Reports: , with Spouse Occupation: Other H&P Review of Systems - Review of Systems: Review Of Systems: See Below General: Reports: Weakness HEENT: Reports: No Symptoms Pulmonary: Reports: No Symptoms Cardiovascular: Reports: No Symptoms Gastrointestinal: Reports: Diarrhea, Decreased Appetite, Nausea, Vomiting. Denies: Bloody Stool, Hematochezia, Melena Genitourinary: Reports: No Symptoms Musculoskeletal: Reports: No Symptoms Skin: Reports: No Symptoms Psychiatric: Reports: No Symptoms Neurological: Reports: Pre-Existing Deficit, Tremors Hematologic/Lymphatic: Reports: No Symptoms Immunologic: Reports: No Symptoms Exam - Exam Exam: See Below - Vital Signs Vital Signs: Last Vital Signs Temp 36.8 C 03/26/21 13:24 Pulse 73 03/26/21 13:24 Resp 18 03/26/21 13:24 BP 103/71 03/26/21 13:24 Pulse Ox 98 03/26/21 13:24 Weight: 49.895 kg - Exam Quality Assessment: DVT Prophylaxis. No: Supplemental Oxygen General: Alert, Oriented, Cooperative, Mild Distress HEENT: Conjunctiva Clear, EACs Clear, EOMI, Mucosa Moist & [place], Nares Patent, PERRLA Neck: Supple, Trachea Midline Lungs: Clear to Auscultation, Normal Respiratory Effort Cardiovascular: Regular Rate, Regular Rhythm GI/Abdominal Exam: Normal Bowel Sounds, Soft, Non-Tender, No Distention. No: Guarding, Rigid, Rebound (Female) Exam: Deferred Rectal (Female) Exam: Deferred Back Exam: Normal Inspection, Full Range of Motion Extremities: Normal Inspection, No Pedal Edema Skin: Warm, Dry, Intact Neurological: Cranial Nerves Intact, Strength Equal Bilateral, Normal Gait, Normal Speech Neuro Extensive - Mental Status: Alert, Oriented x3 Psychiatric: Alert, Normal Affect, Normal Mood - Patient Data Lab Results Last 24 hrs: Laboratory Results - last 24 hr 03/26/21 03/26/21 03/26/21 Range/Units 15:10 15:10 16:07 WBC 4.58 (3.98-10.04) K/mm3 RBC 4.62 (3.98-5.22) M/mm3 Hgb 15.3 D (11.2-15.7) gm/dl Hct 42.4 (34.1-44.9) % MCV 91.8 D (79.4-94.8) fl MCH 33.1 H (25.6-32.2) pg MCHC 36.1 H (32.2-35.5) g/dl RDW Std Deviation 43.0 (36.4-46.3) fL Plt Count 217 (182-369) K/mm3 MPV 10.5 (9.4-12.3) fl Neut % (Auto) 70.3 (34.0-71.1) % Lymph % (Auto) 22.7 (19.3-51.7) % [place] % (Auto) 6.8 (4.7-12.5) % Eos % (Auto) 0 L (0.7-5.8) Baso % (Auto) 0.2 (0.1-1.2) % Neut # (Auto) 3.22 (1.56-6.13) K/mm3 Lymph # (Auto) 1.04 L (1.18-3.74) K/mm3 [place] # (Auto) 0.31 (0.24-0.36) K/mm3 Eos # (Auto) 0.00 L (0.04-0.36) K/mm3 Baso # (Auto) 0.01 (0.01-0.08) K/mm3 Sodium 138 (136-145) mEq/L Potassium 2.3 L* (3.5-5.1) mEq/L Chloride 94 L (98-107) mEq/L Carbon Dioxide 35 H (21-32) mEq/L Anion Gap 11.3 (5-15) BUN 15 (7-18) mg/dL Creatinine 1.1 H (0.55-1.02) mg/dL Est Cr Clr Drug Dosing 44.45 mL/min Estimated GFR (MDRD) 51 (>60) mL/min BUN/Creatinine Ratio 13.6 L (14-18) Glucose 103 H (70-99) mg/dL Calcium 8.3 L (8.5-10.1) mg/dL Total Bilirubin 1.1 H (0.2-1.0) mg/dL AST 135 H (15-37) U/L ALT 54 (14-59) U/L Alkaline Phosphatase 46 (46-116) U/L Troponin I < 0.017 (0.00-0.056) ng/mL C-Reactive Protein <0.2 (<1.0) mg/dL Total Protein 6.3 L (6.4-8.2) g/dl Albumin 3.6 (3.4-5.0) g/dl Globulin 2.7 gm/dL Albumin/Globulin Ratio 1.3 (1-2) Urine Color (Yellow) Urine Appearance (Clear) Urine pH (5.0-8.0) Ur Specific [place] (1.005-1.030) Urine Protein (Negative) Urine Glucose (UA) (Negative) Urine Ketones (Negative) Urine Occult Blood (Negative) Urine Nitrite (Negative) Urine Bilirubin (Negative) Urine Urobilinogen (0.2-1.0) Ur Leukocyte Esterase (Negative) Urine RBC (0-5) /hpf Urine WBC (0-5) /hpf Ur Epithelial Cells (0-5) /hpf Urine Bacteria (FEW) /hpf Urine Mucus (FEW) /hpf SARS-CoV-2 RNA (MEKA) Negative (NEGATIVE) 03/26/21 Range/Units 16:37 WBC (3.98-10.04) K/mm3 RBC (3.98-5.22) M/mm3 Hgb (11.2-15.7) gm/dl Hct (34.1-44.9) % MCV (79.4-94.8) fl MCH (25.6-32.2) pg MCHC (32.2-35.5) g/dl RDW Std Deviation (36.4-46.3) fL Plt Count (182-369) K/mm3 MPV (9.4-12.3) fl Neut % (Auto) (34.0-71.1) % Lymph % (Auto) (19.3-51.7) % [place] % (Auto) (4.7-12.5) % Eos % (Auto) (0.7-5.8) Baso % (Auto) (0.1-1.2) % Neut # (Auto) (1.56-6.13) K/mm3 Lymph # (Auto) (1.18-3.74) K/mm3 [place] # (Auto) (0.24-0.36) K/mm3 Eos # (Auto) (0.04-0.36) K/mm3 Baso # (Auto) (0.01-0.08) K/mm3 Sodium (136-145) mEq/L Potassium (3.5-5.1) mEq/L Chloride (98-107) mEq/L Carbon Dioxide (21-32) mEq/L Anion Gap (5-15) BUN (7-18) mg/dL Creatinine (0.55-1.02) mg/dL Est Cr Clr Drug Dosing mL/min Estimated GFR (MDRD) (>60) mL/min BUN/Creatinine Ratio (14-18) Glucose (70-99) mg/dL Calcium (8.5-10.1) mg/dL Total Bilirubin (0.2-1.0) mg/dL AST (15-37) U/L ALT (14-59) U/L Alkaline Phosphatase (46-116) U/L Troponin I (0.00-0.056) ng/mL C-Reactive Protein (<1.0) mg/dL Total Protein (6.4-8.2) g/dl Albumin (3.4-5.0) g/dl Globulin gm/dL Albumin/Globulin Ratio (1-2) Urine Color Yellow (Yellow) Urine Appearance Clear (Clear) Urine pH 6.5 (5.0-8.0) Ur Specific [place] 1.025 (1.005-1.030) Urine Protein 1+ H (Negative) Urine Glucose (UA) Negative (Negative) Urine Ketones 1+ H (Negative) Urine Occult Blood Negative (Negative) Urine Nitrite Negative (Negative) Urine Bilirubin 2+ H (Negative) Urine Urobilinogen 1.0 (0.2-1.0) Ur Leukocyte Esterase Trace H (Negative) Urine RBC 0-5 (0-5) /hpf Urine WBC 0-5 (0-5) /hpf Ur Epithelial Cells 5-10 H (0-5) /hpf Urine Bacteria Few (FEW) /hpf Urine Mucus Moderate H (FEW) /hpf SARS-CoV-2 RNA (MEKA) (NEGATIVE) Result Diagrams: 03/26/21 15:10 03/26/21 15:10 Sepsis Event Note - Evaluation Sepsis Screening Result: No Definite Risk - Focused Exam Vital Signs: Vital Signs Temp Pulse Resp BP Pulse Ox 03/26/21 13:24 36.8 C 73 18 103/71 98 - Problem List (1) Hypokalemia due to excessive gastrointestinal loss of potassium SNOMED Code(s): 36681135 ICD Code: E87.6 - HYPOKALEMIA Status: Acute Priority: High Current Visit: Yes (2) History of breast cancer in adulthood SNOMED Code(s): 098562646 ICD Code: Z85.3 - PERSONAL HISTORY OF MALIGNANT NEOPLASM OF BREAST Status: Chronic Priority: Medium Current Visit: No (3) Tobacco use SNOMED Code(s): 464476085 ICD Code: Z72.0 - TOBACCO USE Status: Chronic Priority: High Current Visit: Yes (4) Coronary artery disease SNOMED Code(s): 68958486 ICD Code: I25.10 - ATHSCL HEART DISEASE OF [place] CORONARY ARTERY W/O ANG PCTRS Status: Chronic Priority: High Current Visit: Yes Qualifiers: Coronary Disease-Associated Artery/Lesion type: [place] artery [place] vs. transplanted heart: [place] heart Associated angina: without angina Qualified Code(s): I25.10 - Atherosclerotic heart disease of [place] coronary artery without angina pectoris Problem List Initiated/Reviewed/Updated: Yes Orders Last 24hrs: Active Orders 24 hr Category Date Time Status EKG Documentation Completion [RC] STAT Care 03/26/21 14:15 Active Peripheral IV Care [RC] . DIRECTED Care 03/26/21 14:16 Active Potassium Chloride [KCl in Water 10 MEQ/100 ML] 10 meq Med 03/26/21 16:00 Active Premix Bag 1 bag IV Q1H Sodium Chloride 0.9% [Normal Saline] 1,000 ml Med 03/26/21 15:57 Active IV NOW Sodium Chloride 0.9% [Saline Flush] Med 03/26/21 14:16 Active 10 ml FLUSH ASDIRECTED PRN Peripheral IV Insertion Adult [OM.PC] Stat Oth 03/26/21 14:15 Ordered Medication Orders Sodium Chloride (Normal Saline) 1,000 mls @ 150 mls/hr IV NOW STA Stop: 03/26/21 22:36 Last Admin: 03/26/21 16:04 Dose: 150 mls/hr Documented by: [email or web address] Potassium Chloride 10 meq/ (Premix) 100 mls @ 100 mls/hr IV Q1H SHUN Stop: 03/26/21 23:59 Last Admin: 03/26/21 16:04 Dose: 100 mls/hr Documented by: SANDBLA Sodium Chloride (Sodium Chloride 0.9% 10 Ml Syringe) 10 ml FLUSH ASDIRECTED PRN PRN Reason: Keep Vein Open Last Admin: 03/26/21 15:10 Dose: 10 ml Documented by: RU Assessment/Plan Comment:: The patient is a 56-year-old lady who has presented to the emergency department out of concern for nausea and vomiting and diarrhea. She will be admitted to observation and her potassium will be replaced slowly and her fluids will be continued to help with her GI losses. I have ordered repeat laboratory studies for the morning. She will also have DVT prophylaxis with use of Lovenox. I have ordered cultures of her stools for various bacteria. She will have regular diet as tolerated. I have also looked at her home medications and asked for t hose to be confirmed and alerted in order to reconcile. The patient should be appropriate for discharge once her symptoms have been controlled and her electrolytes have been replaced. Repeat laboratory studies have been ordered for the morning. I have also ordered the magnesium for today. - Mortality Measure Prognosis:: Good
[2021-03-26] MEDS ORDERED: Temazepam 15 MG Cap PO PRN (17:20)
[2021-03-26] MEDS ORDERED: Ondansetron 4 MG Tab.DIS PO PRN (17:20)
[2021-03-26] MEDS ORDERED: oxyCODONE 5 MG Tab PO PRN (17:20)
[2021-03-26] MEDS ORDERED: Acetaminophen 325 MG Tab PO PRN (17:20)
[2021-03-26] MEDS ORDERED: Docusate Sodium 100 MG Cap PO PRN (17:20)
[2021-03-26] MEDS: Nicotine 14 MG/24 Hr Patch TRDERM SCH (23:22)
[2021-03-26] MEDS: Sodium Chloride 0.9% 1,000 ML IV SCH (23:25)
[2021-03-27] MEDS: Potassium Chloride 10 MEQ in Premix Bag 1 BAG IV SCH ×2 (00:41→02:23)
[2021-03-27] MEDS ORDERED: ALPRAZolam 1 MG Tab PO PRN (06:45)
[2021-03-27] MEDS ORDERED: Magnesium Sulfate/Water 2 GM in Premix Bag 1 BAG IV ONE (06:49)
[2021-03-27] MEDS: Nicotine 14 MG/24 Hr Patch TRDERM SCH (08:33)
[2021-03-27] MEDS ORDERED: Gabapentin 100 MG Cap PO SCH (09:00)
[2021-03-27] MEDS ORDERED: Potassium Chloride 20 MEQ Tab.ER PO ONE (09:00)
[2021-03-27] MEDS ORDERED: Sertraline 50 MG Tab PO SCH (09:00)
[2021-03-27] MEDS ORDERED: Enoxaparin 40 MG/0.4 ML Syringe SUBCUT SCH (09:00)
[2021-03-27] MEDS ORDERED: Ticagrelor 90 MG Tab PO SCH (09:00)
[2021-03-27] MEDS ORDERED: Metoprolol Succinate 25 MG Tab.ER PO SCH (09:00)
[2021-03-27] MEDS ORDERED: Furosemide 20 MG Tab PO SCH (09:00)
[2021-03-27] MEDS ORDERED: Magnesium Oxide 400 MG Tab PO ONE (09:00)
--- NOTE | 2021-03-27 09:11 | PCM.PN ---
<CastellanoEber delaney M - Last Filed: 03/27/21 15:04> - General Info Date of Service: 03/27/21 Admission Dx/Problem (Free Text): Intractable nausea and vomiting with diarrhea, severe hypokalemia. Hypokalemia due to GI loss. Subjective Update: 56-year-old female who presented to the emergency department with a 3-day history of nausea, vomiting, and diarrhea. Suspects that she may have eaten a tainted salad which caused the symptoms. Patient presented to the ER and was found to have a potassium level of 2.3 resulting from the vomiting and diarrhea. Thus she was admitted to the floor under observation status. She did receive potassium supplementation. This morning, the patient states she feels much better. She has not had any nausea or vomiting throughout the night however she states she has had 3 bouts of watery diarrhea stools. She denies any blood in the stool. She denies any abdominal pain or cramping associated with the diarrhea. Potassium level is 3.7 this morning. Would like to discharge her to home however she has not eaten breakfast and states she really does not have any appetite. She has been on the hypotensive side with systolic blood pressures in the 80s over 50s to 60s. Heart rate has been in the 50s and 60s. She denies any dizziness when up ambulating to the room or to the bathroom. Stool cultures are pending. Functional Status: Reports: Pain Controlled, Ambulating, Urinating. Denies: Tolerating Diet (Has not eaten breakfast and has a decreased appetite) - Review of Systems General: Reports: No Symptoms HEENT: Reports: No Symptoms Pulmonary: Reports: No Symptoms Cardiovascular: Reports: No Symptoms Gastrointestinal: Reports: No Symptoms Genitourinary: Reports: No Symptoms Musculoskeletal: Reports: Other (Reports cramps to the bottoms of her feet however she states she does have peripheral neuropathy and this is chronic in nature.) Skin: Reports: No Symptoms Neurological: Reports: No Symptoms Psychiatric: Reports: No Symptoms - Patient Data Vitals - Most Recent: Last Vital Signs Temp 98.4 F 03/27/21 07:36 Pulse 60 03/27/21 08:34 Resp 14 03/27/21 07:36 BP 85/60 L 03/27/21 08:34 Pulse Ox 95 03/27/21 07:36 Weight - Most Recent: 48.217 kg I&O - Last 24 Hours: Intake & Output 03/26/21 03/27/21 03/27/21 22:59 06:59 14:59 Intake Total 0 1475 Output Total 400 Balance 0 1075 Lab Results Last 24 Hours: Laboratory Results - last 24 hr 03/26/21 03/26/21 03/26/21 Range/Units 14:16 15:10 15:10 WBC 4.58 (3.98-10.04) K/mm3 RBC 4.62 (3.98-5.22) M/mm3 Hgb 15.3 D (11.2-15.7) gm/dl Hct 42.4 (34.1-44.9) % MCV 91.8 D (79.4-94.8) fl MCH 33.1 H (25.6-32.2) pg MCHC 36.1 H (32.2-35.5) g/dl RDW Std Deviation 43.0 (36.4-46.3) fL Plt Count 217 (182-369) K/mm3 MPV 10.5 (9.4-12.3) fl Neut % (Auto) 70.3 (34.0-71.1) % Lymph % (Auto) 22.7 (19.3-51.7) % [place] % (Auto) 6.8 (4.7-12.5) % Eos % (Auto) 0 L (0.7-5.8) Baso % (Auto) 0.2 (0.1-1.2) % Neut # (Auto) 3.22 (1.56-6.13) K/mm3 Lymph # (Auto) 1.04 L (1.18-3.74) K/mm3 [place] # (Auto) 0.31 (0.24-0.36) K/mm3 Eos # (Auto) 0.00 L (0.04-0.36) K/mm3 Baso # (Auto) 0.01 (0.01-0.08) K/mm3 Sodium 138 (136-145) mEq/L Potassium 2.3 L* (3.5-5.1) mEq/L Chloride 94 L (98-107) mEq/L Carbon Dioxide 35 H (21-32) mEq/L Anion Gap 11.3 (5-15) BUN 15 (7-18) mg/dL Creatinine 1.1 H (0.55-1.02) mg/dL Est Cr Clr Drug Dosing 44.45 mL/min Estimated GFR (MDRD) 51 (>60) mL/min BUN/Creatinine Ratio 13.6 L (14-18) Glucose 103 H (70-99) mg/dL Calcium 8.3 L (8.5-10.1) mg/dL Magnesium 1.9 (1.8-2.4) mg/dL Total Bilirubin 1.1 H (0.2-1.0) mg/dL AST 135 H (15-37) U/L ALT 54 (14-59) U/L Alkaline Phosphatase 46 (46-116) U/L Troponin I < 0.017 (0.00-0.056) ng/mL C-Reactive Protein <0.2 (<1.0) mg/dL Total Protein 6.3 L (6.4-8.2) g/dl Albumin 3.6 (3.4-5.0) g/dl Globulin 2.7 gm/dL Albumin/Globulin Ratio 1.3 (1-2) Urine Color (Yellow) Urine Appearance (Clear) Urine pH (5.0-8.0) Ur Specific [place] (1.005-1.030) Urine Protein (Negative) Urine Glucose (UA) (Negative) Urine Ketones (Negative) Urine Occult Blood (Negative) Urine Nitrite (Negative) Urine Bilirubin (Negative) Urine Urobilinogen (0.2-1.0) Ur Leukocyte Esterase (Negative) Urine RBC (0-5) /hpf Urine WBC (0-5) /hpf Ur Epithelial Cells (0-5) /hpf Urine Bacteria (FEW) /hpf Urine Mucus (FEW) /hpf SARS-CoV-2 RNA (MEKA) (NEGATIVE) 03/26/21 03/26/21 03/27/21 Range/Units 16:07 16:37 05:34 WBC 5.28 (3.98-10.04) K/mm3 RBC 3.83 L (3.98-5.22) M/mm3 Hgb 12.7 D (11.2-15.7) gm/dl Hct 36.7 (34.1-44.9) % MCV 95.8 H D (79.4-94.8) fl MCH 33.2 H (25.6-32.2) pg MCHC 34.6 (32.2-35.5) g/dl RDW Std Deviation 44.2 (36.4-46.3) fL Plt Count 173 L (182-369) K/mm3 MPV 10.5 (9.4-12.3) fl Neut % (Auto) 61.9 (34.0-71.1) % Lymph % (Auto) 30.3 (19.3-51.7) % [place] % (Auto) 7.2 (4.7-12.5) % Eos % (Auto) 0.2 L (0.7-5.8) Baso % (Auto) 0.4 (0.1-1.2) % Neut # (Auto) 3.27 (1.56-6.13) K/mm3 Lymph # (Auto) 1.60 (1.18-3.74) K/mm3 [place] # (Auto) 0.38 H (0.24-0.36) K/mm3 Eos # (Auto) 0.01 L (0.04-0.36) K/mm3 Baso # (Auto) 0.02 (0.01-0.08) K/mm3 Sodium (136-145) mEq/L Potassium (3.5-5.1) mEq/L Chloride (98-107) mEq/L Carbon Dioxide (21-32) mEq/L Anion Gap (5-15) BUN (7-18) mg/dL Creatinine (0.55-1.02) mg/dL Est Cr Clr Drug Dosing mL/min Estimated GFR (MDRD) (>60) mL/min BUN/Creatinine Ratio (14-18) Glucose (70-99) mg/dL Calcium (8.5-10.1) mg/dL Magnesium (1.8-2.4) mg/dL Total Bilirubin (0.2-1.0) mg/dL AST (15-37) U/L ALT (14-59) U/L Alkaline Phosphatase (46-116) U/L Troponin I (0.00-0.056) ng/mL C-Reactive Protein (<1.0) mg/dL Total Protein (6.4-8.2) g/dl Albumin (3.4-5.0) g/dl Globulin gm/dL Albumin/Globulin Ratio (1-2) Urine Color Yellow (Yellow) Urine Appearance Clear (Clear) Urine pH 6.5 (5.0-8.0) Ur Specific [place] 1.025 (1.005-1.030) Urine Protein 1+ H (Negative) Urine Glucose (UA) Negative (Negative) Urine Ketones 1+ H (Negative) Urine Occult Blood Negative (Negative) Urine Nitrite Negative (Negative) Urine Bilirubin 2+ H (Negative) Urine Urobilinogen 1.0 (0.2-1.0) Ur Leukocyte Esterase Trace H (Negative) Urine RBC 0-5 (0-5) /hpf Urine WBC 0-5 (0-5) /hpf Ur Epithelial Cells 5-10 H (0-5) /hpf Urine Bacteria Few (FEW) /hpf Urine Mucus Moderate H (FEW) /hpf SARS-CoV-2 RNA (MEKA) Negative (NEGATIVE) 03/27/21 Range/Units 05:34 WBC (3.98-10.04) K/mm3 RBC (3.98-5.22) M/mm3 Hgb (11.2-15.7) gm/dl Hct (34.1-44.9) % MCV (79.4-94.8) fl MCH (25.6-32.2) pg MCHC (32.2-35.5) g/dl RDW Std Deviation (36.4-46.3) fL Plt Count (182-369) K/mm3 MPV (9.4-12.3) fl Neut % (Auto) (34.0-71.1) % Lymph % (Auto) (19.3-51.7) % [place] % (Auto) (4.7-12.5) % Eos % (Auto) (0.7-5.8) Baso % (Auto) (0.1-1.2) % Neut # (Auto) (1.56-6.13) K/mm3 Lymph # (Auto) (1.18-3.74) K/mm3 [place] # (Auto) (0.24-0.36) K/mm3 Eos # (Auto) (0.04-0.36) K/mm3 Baso # (Auto) (0.01-0.08) K/mm3 Sodium 139 (136-145) mEq/L Potassium 3.7 (3.5-5.1) mEq/L Chloride 102 (98-107) mEq/L Carbon Dioxide 31 (21-32) mEq/L Anion Gap 9.7 (5-15) BUN 13 (7-18) mg/dL Creatinine 1.0 (0.55-1.02) mg/dL Est Cr Clr Drug Dosing 47.25 mL/min Estimated GFR (MDRD) 57 (>60) mL/min BUN/Creatinine Ratio 13.0 L (14-18) Glucose 77 (70-99) mg/dL Calcium 7.1 L (8.5-10.1) mg/dL Magnesium 1.7 L (1.8-2.4) mg/dL Total Bilirubin 0.7 (0.2-1.0) mg/dL AST 161 H (15-37) U/L ALT 49 (14-59) U/L Alkaline Phosphatase 37 L (46-116) U/L Troponin I (0.00-0.056) ng/mL C-Reactive Protein <0.2 (<1.0) mg/dL Total Protein 5.1 L (6.4-8.2) g/dl Albumin 2.9 L (3.4-5.0) g/dl Globulin 2.2 gm/dL Albumin/Globulin Ratio 1.3 (1-2) Urine Color (Yellow) Urine Appearance (Clear) Urine pH (5.0-8.0) Ur Specific [place] (1.005-1.030) Urine Protein (Negative) Urine Glucose (UA) (Negative) Urine Ketones (Negative) Urine Occult Blood (Negative) Urine Nitrite (Negative) Urine Bilirubin (Negative) Urine Urobilinogen (0.2-1.0) Ur Leukocyte Esterase (Negative) Urine RBC (0-5) /hpf Urine WBC (0-5) /hpf Ur Epithelial Cells (0-5) /hpf Urine Bacteria (FEW) /hpf Urine Mucus (FEW) /hpf SARS-CoV-2 RNA (MEKA) (NEGATIVE) Med Orders - Current: Current Medications Acetaminophen (Acetaminophen 325 Mg Tab) 650 mg PO Q4H PRN PRN Reason: Pain (Mild 1-3)/fever Alprazolam (Alprazolam 1 Mg Tab) 1 mg PO TID PRN PRN Reason: Anxiety Cilostazol (Cilostazol 100 Mg Tab) 100 mg PO BID [facility] Last Admin: 03/27/21 08:34 Dose: 100 mg Documented by: Docusate Sodium (Docusate Sodium 100 Mg Cap) 100 mg PO BID PRN PRN Reason: Constipation Enoxaparin Sodium (Enoxaparin 40 Mg/0.4 Ml Syringe) 40 mg SUBCUT DAILY [facility] Last Admin: 03/27/21 08:32 Dose: 40 mg Documented by: Furosemide (Furosemide 20 Mg Tab) 20 mg PO DAILY [facility] Last Admin: 03/27/21 08:34 Dose: Not Given Documented by: Gabapentin (Gabapentin 100 Mg Cap) 100 mg PO TID [facility] Last Admin: 03/27/21 08:34 Dose: 100 mg Documented by: Sodium Chloride (Normal Saline) 1,000 mls @ 75 mls/hr IV ASDIRECTED [facility] Last Admin: 03/26/21 23:25 Dose: 75 mls/hr Documented by: Metoprolol Succinate (Metoprolol Succinate 25 Mg Tab.Er) 25 mg PO BID [facility] Last Admin: 03/27/21 08:34 Dose: 25 mg Documented by: Nicotine (Nicotine 14 Mg/24 Hr Patch) 14 mg TRDERM DAILY [facility] Last Admin: 03/27/21 08:33 Dose: Not Given Documented by: Ondansetron HCl (Ondansetron 4 Mg Tab.Dis) 4 mg PO Q4H PRN PRN Reason: nausea, able to take PO Oxycodone HCl (Oxycodone 5 Mg Tab) 5 mg PO Q4H PRN PRN Reason: Pain (moderate 4-6) Sertraline HCl (Sertraline 50 Mg Tab) 100 mg PO BID [facility] Last Admin: 03/27/21 08:34 Dose: 100 mg Documented by: Sodium Chloride (Sodium Chloride 0.9% 10 Ml Syringe) 10 ml FLUSH ASDIRECTED PRN PRN Reason: Keep Vein Open Last Admin: 03/26/21 15:10 Dose: 10 ml Documented by: Temazepam (Temazepam 15 Mg Cap) 15 mg PO BEDTIME PRN PRN Reason: Sleep Ticagrelor (Ticagrelor 90 Mg Tab) 90 mg PO BID [facility] Last Admin: 03/27/21 08:33 Dose: 90 mg Documented by: Discontinued Medications Sodium Chloride (Normal Saline) 1,000 mls @ 999 mls/hr IV NOW STA Stop: 03/26/21 15:16 Last Admin: 03/26/21 15:10 Dose: 999 mls/hr Documented by: Sodium Chloride (Normal Saline) 1,000 mls @ 150 mls/hr IV NOW STA Stop: 03/26/21 22:36 Last Admin: 03/26/21 16:04 Dose: 150 mls/hr Documented by: Potassium Chloride 10 meq/ (Premix) 100 mls @ 100 mls/hr IV Q1H SHUN Stop: 03/26/21 23:59 Last Admin: 03/27/21 02:23 Dose: 100 mls/hr Documented by: Magnesium Sulfate 2 gm/ Premix 50 mls @ 25 mls/hr IV ONETIME ONE Stop: 03/27/21 08:48 Last Admin: 03/27/21 07:49 Dose: 25 mls/hr Documented by: Magnesium Oxide (Magnesium Oxide 400 Mg Tab) 400 mg PO ONETIME ONE Stop: 03/27/21 09:01 Last Admin: 03/27/21 09:00 Dose: 400 mg Documented by: Ondansetron HCl (Ondansetron 4 Mg/2 Ml Sdv) 4 mg IVPUSH ONETIME ONE Stop: 03/26/21 14:17 Last Admin: 03/26/21 15:10 Dose: 4 mg Documented by: Potassium Chloride (Potassium Chloride 20 Meq Tab.Er) 40 meq PO ONETIME ONE Stop: 03/26/21 16:02 Last Admin: 03/26/21 16:27 Dose: 40 meq Documented by: Potassium Chloride (Potassium Chloride 20 Meq Tab.Er) 40 meq PO ONETIME ONE Stop: 03/27/21 09:01 Last Admin: 03/27/21 09:00 Dose: 40 meq Documented by: - Exam Quality Assessment: DVT Prophylaxis (Lovenox). No: Supplemental Oxygen, Urine Catheter General: Alert, Oriented, Cooperative, No Acute Distress HEENT: Pupils Equal, Mucous Membr. Moist/[place] Neck: Supple, Trachea Midline Lungs: Clear to Auscultation, Normal Respiratory Effort Cardiovascular: Regular Rate, Regular Rhythm, No Murmurs GI/Abdominal Exam: Normal Bowel Sounds, Soft, Non-Tender, No Distention (Female) Exam: Deferred Back Exam: Normal Inspection Extremities: Normal Inspection, Normal Range of Motion, No Pedal Edema, Normal Capillary Refill Peripheral Pulses: 2+: Radial (L), Radial (R) Skin: Warm, Dry, Intact Neurological: No New Focal Deficit Psy/Mental Status: Alert, Normal Affect, Normal Mood - Patient Data Lab Results Last 24 hrs: Laboratory Results - last 24 hr 03/26/21 03/26/21 03/26/21 Range/Units 14:16 15:10 15:10 WBC 4.58 (3.98-10.04) K/mm3 RBC 4.62 (3.98-5.22) M/mm3 Hgb 15.3 D (11.2-15.7) gm/dl Hct 42.4 (34.1-44.9) % MCV 91.8 D (79.4-94.8) fl MCH 33.1 H (25.6-32.2) pg MCHC 36.1 H (32.2-35.5) g/dl RDW Std Deviation 43.0 (36.4-46.3) fL Plt Count 217 (182-369) K/mm3 MPV 10.5 (9.4-12.3) fl Neut % (Auto) 70.3 (34.0-71.1) % Lymph % (Auto) 22.7 (19.3-51.7) % [place] % (Auto) 6.8 (4.7-12.5) % Eos % (Auto) 0 L (0.7-5.8) Baso % (Auto) 0.2 (0.1-1.2) % Neut # (Auto) 3.22 (1.56-6.13) K/mm3 Lymph # (Auto) 1.04 L (1.18-3.74) K/mm3 [place] # (Auto) 0.31 (0.24-0.36) K/mm3 Eos # (Auto) 0.00 L (0.04-0.36) K/mm3 Baso # (Auto) 0.01 (0.01-0.08) K/mm3 Sodium 138 (136-145) mEq/L Potassium 2.3 L* (3.5-5.1) mEq/L Chloride 94 L (98-107) mEq/L Carbon Dioxide 35 H (21-32) mEq/L Anion Gap 11.3 (5-15) BUN 15 (7-18) mg/dL Creatinine 1.1 H (0.55-1.02) mg/dL Est Cr Clr Drug Dosing 44.45 mL/min Estimated GFR (MDRD) 51 (>60) mL/min BUN/Creatinine Ratio 13.6 L (14-18) Glucose 103 H (70-99) mg/dL Calcium 8.3 L (8.5-10.1) mg/dL Magnesium 1.9 (1.8-2.4) mg/dL Total Bilirubin 1.1 H (0.2-1.0) mg/dL AST 135 H (15-37) U/L ALT 54 (14-59) U/L Alkaline Phosphatase 46 (46-116) U/L Troponin I < 0.017 (0.00-0.056) ng/mL C-Reactive Protein <0.2 (<1.0) mg/dL Total Protein 6.3 L (6.4-8.2) g/dl Albumin 3.6 (3.4-5.0) g/dl Globulin 2.7 gm/dL Albumin/Globulin Ratio 1.3 (1-2) Urine Color (Yellow) Urine Appearance (Clear) Urine pH (5.0-8.0) Ur Specific [place] (1.005-1.030) Urine Protein (Negative) Urine Glucose (UA) (Negative) Urine Ketones (Negative) Urine Occult Blood (Negative) Urine Nitrite (Negative) Urine Bilirubin (Negative) Urine Urobilinogen (0.2-1.0) Ur Leukocyte Esterase (Negative) Urine RBC (0-5) /hpf Urine WBC (0-5) /hpf Ur Epithelial Cells (0-5) /hpf Urine Bacteria (FEW) /hpf Urine Mucus (FEW) /hpf SARS-CoV-2 RNA (MEKA) (NEGATIVE) 03/26/21 03/26/21 03/27/21 Range/Units 16:07 16:37 05:34 WBC 5.28 (3.98-10.04) K/mm3 RBC 3.83 L (3.98-5.22) M/mm3 Hgb 12.7 D (11.2-15.7) gm/dl Hct 36.7 (34.1-44.9) % MCV 95.8 H D (79.4-94.8) fl MCH 33.2 H (25.6-32.2) pg MCHC 34.6 (32.2-35.5) g/dl RDW Std Deviation 44.2 (36.4-46.3) fL Plt Count 173 L (182-369) K/mm3 MPV 10.5 (9.4-12.3) fl Neut % (Auto) 61.9 (34.0-71.1) % Lymph % (Auto) 30.3 (19.3-51.7) % [place] % (Auto) 7.2 (4.7-12.5) % Eos % (Auto) 0.2 L (0.7-5.8) Baso % (Auto) 0.4 (0.1-1.2) % Neut # (Auto) 3.27 (1.56-6.13) K/mm3 Lymph # (Auto) 1.60 (1.18-3.74) K/mm3 [place] # (Auto) 0.38 H (0.24-0.36) K/mm3 Eos # (Auto) 0.01 L (0.04-0.36) K/mm3 Baso # (Auto) 0.02 (0.01-0.08) K/mm3 Sodium (136-145) mEq/L Potassium (3.5-5.1) mEq/L Chloride (98-107) mEq/L Carbon Dioxide (21-32) mEq/L Anion Gap (5-15) BUN (7-18) mg/dL Creatinine (0.55-1.02) mg/dL Est Cr Clr Drug Dosing mL/min Estimated GFR (MDRD) (>60) mL/min BUN/Creatinine Ratio (14-18) Glucose (70-99) mg/dL Calcium (8.5-10.1) mg/dL Magnesium (1.8-2.4) mg/dL Total Bilirubin (0.2-1.0) mg/dL AST (15-37) U/L ALT (14-59) U/L Alkaline Phosphatase (46-116) U/L Troponin I (0.00-0.056) ng/mL C-Reactive Protein (<1.0) mg/dL Total Protein (6.4-8.2) g/dl Albumin (3.4-5.0) g/dl Globulin gm/dL Albumin/Globulin Ratio (1-2) Urine Color Yellow (Yellow) Urine Appearance Clear (Clear) Urine pH 6.5 (5.0-8.0) Ur Specific [place] 1.025 (1.005-1.030) Urine Protein 1+ H (Negative) Urine Glucose (UA) Negative (Negative) Urine Ketones 1+ H (Negative) Urine Occult Blood Negative (Negative) Urine Nitrite Negative (Negative) Urine Bilirubin 2+ H (Negative) Urine Urobilinogen 1.0 (0.2-1.0) Ur Leukocyte Esterase Trace H (Negative) Urine RBC 0-5 (0-5) /hpf Urine WBC 0-5 (0-5) /hpf Ur Epithelial Cells 5-10 H (0-5) /hpf Urine Bacteria Few (FEW) /hpf Urine Mucus Moderate H (FEW) /hpf SARS-CoV-2 RNA (MEKA) Negative (NEGATIVE) 03/27/21 Range/Units 05:34 WBC (3.98-10.04) K/mm3 RBC (3.98-5.22) M/mm3 Hgb (11.2-15.7) gm/dl Hct (34.1-44.9) % MCV (79.4-94.8) fl MCH (25.6-32.2) pg MCHC (32.2-35.5) g/dl RDW Std Deviation (36.4-46.3) fL Plt Count (182-369) K/mm3 MPV (9.4-12.3) fl Neut % (Auto) (34.0-71.1) % Lymph % (Auto) (19.3-51.7) % [place] % (Auto) (4.7-12.5) % Eos % (Auto) (0.7-5.8) Baso % (Auto) (0.1-1.2) % Neut # (Auto) (1.56-6.13) K/mm3 Lymph # (Auto) (1.18-3.74) K/mm3 [place] # (Auto) (0.24-0.36) K/mm3 Eos # (Auto) (0.04-0.36) K/mm3 Baso # (Auto) (0.01-0.08) K/mm3 Sodium 139 (136-145) mEq/L Potassium 3.7 (3.5-5.1) mEq/L Chloride 102 (98-107) mEq/L Carbon Dioxide 31 (21-32) mEq/L Anion Gap 9.7 (5-15) BUN 13 (7-18) mg/dL Creatinine 1.0 (0.55-1.02) mg/dL Est Cr Clr Drug Dosing 47.25 mL/min Estimated GFR (MDRD) 57 (>60) mL/min BUN/Creatinine Ratio 13.0 L (14-18) Glucose 77 (70-99) mg/dL Calcium 7.1 L (8.5-10.1) mg/dL Magnesium 1.7 L (1.8-2.4) mg/dL Total Bilirubin 0.7 (0.2-1.0) mg/dL AST 161 H (15-37) U/L ALT 49 (14-59) U/L Alkaline Phosphatase 37 L (46-116) U/L Troponin I (0.00-0.056) ng/mL C-Reactive Protein <0.2 (<1.0) mg/dL Total Protein 5.1 L (6.4-8.2) g/dl Albumin 2.9 L (3.4-5.0) g/dl Globulin 2.2 gm/dL Albumin/Globulin Ratio 1.3 (1-2) Urine Color (Yellow) Urine Appearance (Clear) Urine pH (5.0-8.0) Ur Specific [place] (1.005-1.030) Urine Protein (Negative) Urine Glucose (UA) (Negative) Urine Ketones (Negative) Urine Occult Blood (Negative) Urine Nitrite (Negative) Urine Bilirubin (Negative) Urine Urobilinogen (0.2-1.0) Ur Leukocyte Esterase (Negative) Urine RBC (0-5) /hpf Urine WBC (0-5) /hpf Ur Epithelial Cells (0-5) /hpf Urine Bacteria (FEW) /hpf Urine Mucus (FEW) /hpf SARS-CoV-2 RNA ([facility]KA) (NEGATIVE) Result Diagrams: 03/27/21 05:34 03/27/21 05:34 Sepsis Event Note - Evaluation Sepsis Screening Result: No Definite Risk - Focused Exam Vital Signs: Vital Signs Temp Pulse Resp BP Pulse Ox 03/27/21 08:34 60 85/60 L 03/27/21 07:36 98.4 F 60 14 85/60 L 95 03/27/21 04:06 98.4 F 58 L 20 89/49 L 96 03/27/21 00:44 98.8 F 58 L 17 87/59 L 99 - Problem List & Annotations (1) Hypokalemia due to excessive gastrointestinal loss of potassium SNOMED Code(s): 66452999 Code(s): E87.6 - HYPOKALEMIA Status: Acute Priority: High Current Visit: Yes (2) Coronary artery disease SNOMED Code(s): 70717868 Code(s): I25.10 - ATHSCL HEART DISEASE OF [place] CORONARY ARTERY W/O ANG PCTRS Status: Chronic Priority: High Current Visit: Yes Qualifiers: Coronary Disease-Associated Artery/Lesion type: [place] artery [place] vs. transplanted heart: [place] heart Associated angina: without angina Qualified Code(s): I25.10 - Atherosclerotic heart disease of [place] coronary artery without angina pectoris (3) Tobacco use SNOMED Code(s): 412074141 Code(s): Z72.0 - TOBACCO USE Status: Chronic Priority: High Current Visit: Yes (4) History of breast cancer in adulthood SNOMED Code(s): 998057411 Code(s): Z85.3 - PERSONAL HISTORY OF MALIGNANT NEOPLASM OF BREAST Status: Chronic Priority: Medium Current Visit: No - Problem List Review Problem List Initiated/Reviewed/Updated: Yes - Assessment Assessment:: 56-year-old female with a 3-day history of nausea, vomiting, and diarrhea. Subsequently admitted to the hospital under observation status. Potassium level 2.3 in the emergency department. Potassium was supplemented and is now 3.7 with a magnesium level of 1.7 this morning. She has not eaten breakfast and denies h aving any appetite. Will allow her to be discharged to home once she can tolerate a diet. She has had 3 bouts of watery diarrhea stools overnight. Will supplement 40 mEq of potassium orally this morning as well as 400 mg magnesium oxide. We will continue IV fluids at this time as patient is slightly hypotensive however she is not symptomatic. Patient is receiving Lovenox for DVT prophylaxis. She is a full code. Will reevaluate pending discharge after lunch. - Plan Plan:: The patient is a 56-year-old lady who has presented to the emergency department out of concern for nausea and vomiting and diarrhea. She will be admitted to observation and her potassium will be replaced slowly and her fluids will be continued to help with her GI losses. I have ordered repeat laboratory studies for the morning. She will also have DVT prophylaxis with use of Lovenox. I have ordered cultures of her stools for various bacteria. She will have regular diet as tolerated. I have also looked at her home medications and asked for those to be confirmed and alerted in order to reconcile. The patient should be appropriate for discharge once her symptoms have been controlled and her electrolytes have been replaced. Repeat laboratory studies have been ordered for the morning. I have also ordered the magnesium for today. Pt was able to tolerate lunch. She states she is feeling much better, however is still having loose stools. She is requesting to be discharged to home as she states she will eat better and get more rest there. BP at noon was 83 systolic. Again, she is asymptomatic. She states that she normally runs a low blood pressure as a baseline. The patient received a 500ml NS bolus and recheck of BP was 92 systolic. I will discharge her to home. She will need to follow up with her primary care provider in one week. <Leonard Haji M - Last Filed: 03/27/21 16:13> - Patient Data Vitals - Most Recent: Last Vital Signs Temp 36.4 C 03/27/21 12:29 Pulse 55 L 03/27/21 12:29 Resp 16 03/27/21 12:29 BP 83/58 L 03/27/21 12:29 Pulse Ox 94 L 03/27/21 12:29 I&O - Last 24 Hours: Intake & Output 03/27/21 03/27/21 03/27/21 06:59 14:59 22:59 Intake Total 1475 120 Output Total 400 Balance 1075 120 Lab Results Last 24 Hours: Laboratory Results - last 24 hr 03/26/21 03/26/21 03/26/21 Range/Units 14:16 16:07 16:37 WBC (3.98-10.04) K/mm3 RBC (3.98-5.22) M/mm3 Hgb (11.2-15.7) gm/dl Hct (34.1-44.9) % MCV (79.4-94.8) fl MCH (25.6-32.2) pg MCHC (32.2-35.5) g/dl RDW Std Deviation (36.4-46.3) fL Plt Count (182-369) K/mm3 MPV (9.4-12.3) fl Neut % (Auto) (34.0-71.1) % Lymph % (Auto) (19.3-51.7) % [place] % (Auto) (4.7-12.5) % Eos % (Auto) (0.7-5.8) Baso % (Auto) (0.1-1.2) % Neut # (Auto) (1.56-6.13) K/mm3 Lymph # (Auto) (1.18-3.74) K/mm3 [place] # (Auto) (0.24-0.36) K/mm3 Eos # (Auto) (0.04-0.36) K/mm3 Baso # (Auto) (0.01-0.08) K/mm3 Sodium (136-145) mEq/L Potassium (3.5-5.1) mEq/L Chloride (98-107) mEq/L Carbon Dioxide (21-32) mEq/L Anion Gap (5-15) BUN (7-18) mg/dL Creatinine (0.55-1.02) mg/dL Est Cr Clr Drug Dosing mL/min Estimated GFR (MDRD) (>60) mL/min BUN/Creatinine Ratio (14-18) Glucose (70-99) mg/dL Calcium (8.5-10.1) mg/dL Magnesium 1.9 (1.8-2.4) mg/dL Total Bilirubin (0.2-1.0) mg/dL AST (15-37) U/L ALT (14-59) U/L Alkaline Phosphatase (46-116) U/L C-Reactive Protein (<1.0) mg/dL Total Protein (6.4-8.2) g/dl Albumin (3.4-5.0) g/dl Globulin gm/dL Albumin/Globulin Ratio (1-2) Urine Color Yellow (Yellow) Urine Appearance Clear (Clear) Urine pH 6.5 (5.0-8.0) Ur Specific [place] 1.025 (1.005-1.030) Urine Protein 1+ H (Negative) Urine Glucose (UA) Negative (Negative) Urine Ketones 1+ H (Negative) Urine Occult Blood Negative (Negative) Urine Nitrite Negative (Negative) Urine Bilirubin 2+ H (Negative) Urine Urobilinogen 1.0 (0.2-1.0) Ur Leukocyte Esterase Trace H (Negative) Urine RBC 0-5 (0-5) /hpf Urine WBC 0-5 (0-5) /hpf Ur Epithelial Cells 5-10 H (0-5) /hpf Urine Bacteria Few (FEW) /hpf Urine Mucus Moderate H (FEW) /hpf SARS-CoV-2 RNA (MEKA) Negative (NEGATIVE) 03/27/21 03/27/21 Range/Units 05:34 05:34 WBC 5.28 (3.98-10.04) K/mm3 RBC 3.83 L (3.98-5.22) M/mm3 Hgb 12.7 D (11.2-15.7) gm/dl Hct 36.7 (34.1-44.9) % MCV 95.8 H D (79.4-94.8) fl MCH 33.2 H (25.6-32.2) pg MCHC 34.6 (32.2-35.5) g/dl RDW Std Deviation 44.2 (36.4-46.3) fL Plt Count 173 L (182-369) K/mm3 MPV 10.5 (9.4-12.3) fl Neut % (Auto) 61.9 (34.0-71.1) % Lymph % (Auto) 30.3 (19.3-51.7) % [place] % (Auto) 7.2 (4.7-12.5) % Eos % (Auto) 0.2 L (0.7-5.8) Baso % (Auto) 0.4 (0.1-1.2) % Neut # (Auto) 3.27 (1.56-6.13) K/mm3 Lymph # (Auto) 1.60 (1.18-3.74) K/mm3 [place] # (Auto) 0.38 H (0.24-0.36) K/mm3 Eos # (Auto) 0.01 L (0.04-0.36) K/mm3 Baso # (Auto) 0.02 (0.01-0.08) K/mm3 Sodium 139 (136-145) mEq/L Potassium 3.7 (3.5-5.1) mEq/L Chloride 102 (98-107) mEq/L Carbon Dioxide 31 (21-32) mEq/L Anion Gap 9.7 (5-15) BUN 13 (7-18) mg/dL Creatinine 1.0 (0.55-1.02) mg/dL Est Cr Clr Drug Dosing 47.25 mL/min Estimated GFR (MDRD) 57 (>60) mL/min BUN/Creatinine Ratio 13.0 L (14-18) Glucose 77 (70-99) mg/dL Calcium 7.1 L (8.5-10.1) mg/dL Magnesium 1.7 L (1.8-2.4) mg/dL Total Bilirubin 0.7 (0.2-1.0) mg/dL AST 161 H (15-37) U/L ALT 49 (14-59) U/L Alkaline Phosphatase 37 L (46-116) U/L C-Reactive Protein <0.2 (<1.0) mg/dL Total Protein 5.1 L (6.4-8.2) g/dl Albumin 2.9 L (3.4-5.0) g/dl Globulin 2.2 gm/dL Albumin/Globulin Ratio 1.3 (1-2) Urine Color (Yellow) Urine Appearance (Clear) Urine pH (5.0-8.0) Ur Specific [place] (1.005-1.030) Urine Protein (Negative) Urine Glucose (UA) (Negative) Urine Ketones (Negative) Urine Occult Blood (Negative) Urine Nitrite (Negative) Urine Bilirubin (Negative) Urine Urobilinogen (0.2-1.0) Ur Leukocyte Esterase (Negative) Urine RBC (0-5) /hpf Urine WBC (0-5) /hpf Ur Epithelial Cells (0-5) /hpf Urine Bacteria (FEW) /hpf Urine Mucus (FEW) /hpf SARS-CoV-2 RNA ([facility]) (NEGATIVE) Med Orders - Current: Current Medications Acetaminophen (Acetaminophen 325 Mg Tab) 650 mg PO Q4H PRN PRN Reason: Pain (Mild 1-3)/fever Alprazolam (Alprazolam 1 Mg Tab) 1 mg PO TID PRN PRN Reason: Anxiety Cilostazol (Cilostazol 100 Mg Tab) 100 mg PO BID [facility] Last Admin: 03/27/21 08:34 Dose: 100 mg Documented by: Docusate Sodium (Docusate Sodium 100 Mg Cap) 100 mg PO BID PRN PRN Reason: Constipation Enoxaparin Sodium (Enoxaparin 40 Mg/0.4 Ml Syringe) 40 mg SUBCUT DAILY [facility] Last Admin: 03/27/21 08:32 Dose: 40 mg Documented by: Furosemide (Furosemide 20 Mg Tab) 20 mg PO DAILY [facility] Last Admin: 03/27/21 08:34 Dose: Not Given Documented by: Gabapentin (Gabapentin 100 Mg Cap) 100 mg PO TID [facility] Last Admin: 03/27/21 08:34 Dose: 100 mg Documented by: Sodium Chloride (Normal Saline) 1,000 mls @ 75 mls/hr IV ASDIRECTED [facility] Last Admin: 03/27/21 10:50 Dose: 75 mls/hr Documented by: Metoprolol Succinate (Metoprolol Succinate 25 Mg Tab.Er) 25 mg PO BID [facility] Last Admin: 03/27/21 08:34 Dose: 25 mg Documented by: Nicotine (Nicotine 14 Mg/24 Hr Patch) 14 mg TRDERM DAILY [facility] Last Admin: 03/27/21 08:33 Dose: Not Given Documented by: Nitroglycerin (Nitroglycerin 0.4 Mg Tab.Sl) 0.4 mg SL ASDIRECTED PRN PRN Reason: chest pain Ondansetron HCl (Ondansetron 4 Mg Tab.Dis) 4 mg PO Q4H PRN PRN Reason: nausea, able to take PO Oxycodone HCl (Oxycodone 5 Mg Tab) 5 mg PO Q4H PRN PRN Reason: Pain (moderate 4-6) Sertraline HCl (Sertraline 50 Mg Tab) 100 mg PO BID [facility] Last Admin: 03/27/21 08:34 Dose: 100 mg Documented by: Sodium Chloride (Sodium Chloride 0.9% 10 Ml Syringe) 10 ml FLUSH ASDIRECTED PRN PRN Reason: Keep Vein Open Last Admin: 03/26/21 15:10 Dose: 10 ml Documented by: Temazepam (Temazepam 15 Mg Cap) 15 mg PO BEDTIME PRN PRN Reason: Sleep Ticagrelor (Ticagrelor 90 Mg Tab) 90 mg PO BID [facility] Last Admin: 03/27/21 08:33 Dose: 90 mg Documented by: Vit A/Vit C/Vit E/Selen/Cu/Zn/Lutei (Multivitamins With Minerals/Folic Acid/Lutein/Zeaxanth Tab) 1 tab PO DAILY [facility] Discontinued Medications Sodium Chloride (Normal Saline) 1,000 mls @ 999 mls/hr IV NOW STA Stop: 03/26/21 15:16 Last Admin: 03/26/21 15:10 Dose: 999 mls/hr Documented by: Sodium Chloride (Normal Saline) 1,000 mls @ 150 mls/hr IV NOW STA Stop: 03/26/21 22:36 Last Admin: 03/26/21 16:04 Dose: 150 mls/hr Documented by: Potassium Chloride 10 meq/ (Premix) 100 mls @ 100 mls/hr IV Q1H [facility] Stop: 03/26/21 23:59 Last Admin: 03/27/21 02:23 Dose: 100 mls/hr Documented by: Magnesium Sulfate 2 gm/ Premix 50 mls @ 25 mls/hr IV ONETIME ONE Stop: 03/27/21 08:48 Last Admin: 03/27/21 07:49 Dose: 25 mls/hr Documented by: Sodium Chloride (Normal Saline) 500 mls @ 999 mls/hr IV .BOLUS ONE Stop: 03/27/21 14:51 Last Admin: 03/27/21 14:43 Dose: 999 mls/hr Documented by: Magnesium Oxide (Magnesium Oxide 400 Mg Tab) 400 mg PO ONETIME ONE Stop: 03/27/21 09:01 Last Admin: 03/27/21 09:00 Dose: 400 mg Documented by: Ondansetron HCl (Ondansetron 4 Mg/2 Ml Sdv) 4 mg IVPUSH ONETIME ONE Stop: 03/26/21 14:17 Last Admin: 03/26/21 15:10 Dose: 4 mg Documented by: Potassium Chloride (Potassium Chloride 20 Meq Tab.Er) 40 meq PO ONETIME ONE Stop: 03/26/21 16:02 Last Admin: 03/26/21 16:27 Dose: 40 meq Documented by: Potassium Chloride (Potassium Chloride 20 Meq Tab.Er) 40 meq PO ONETIME ONE Stop: 03/27/21 09:01 Last Admin: 03/27/21 09:00 Dose: 40 meq Documented by: - Patient Data Lab Results Last 24 hrs: Laboratory Results - last 24 hr 03/26/21 03/26/21 03/26/21 Range/Units 14:16 16:07 16:37 WBC (3.98-10.04) K/mm3 RBC (3.98-5.22) M/mm3 Hgb (11.2-15.7) gm/dl Hct (34.1-44.9) % MCV (79.4-94.8) fl MCH (25.6-32.2) pg MCHC (32.2-35.5) g/dl RDW Std Deviation (36.4-46.3) fL Plt Count (182-369) K/mm3 MPV (9.4-12.3) fl Neut % (Auto) (34.0-71.1) % Lymph % (Auto) (19.3-51.7) % [place] % (Auto) (4.7-12.5) % Eos % (Auto) (0.7-5.8) Baso % (Auto) (0.1-1.2) % Neut # (Auto) (1.56-6.13) K/mm3 Lymph # (Auto) (1.18-3.74) K/mm3 [place] # (Auto) (0.24-0.36) K/mm3 Eos # (Auto) (0.04-0.36) K/mm3 Baso # (Auto) (0.01-0.08) K/mm3 Sodium (136-145) mEq/L Potassium (3.5-5.1) mEq/L Chloride (98-107) mEq/L Carbon Dioxide (21-32) mEq/L Anion Gap (5-15) BUN (7-18) mg/dL Creatinine (0.55-1.02) mg/dL Est Cr Clr Drug Dosing mL/min Estimated GFR (MDRD) (>60) mL/min BUN/Creatinine Ratio (14-18) Glucose (70-99) mg/dL Calcium (8.5-10.1) mg/dL Magnesium 1.9 (1.8-2.4) mg/dL Total Bilirubin (0.2-1.0) mg/dL AST (15-37) U/L ALT (14-59) U/L Alkaline Phosphatase (46-116) U/L C-Reactive Protein (<1.0) mg/dL Total Protein (6.4-8.2) g/dl Albumin (3.4-5.0) g/dl Globulin gm/dL Albumin/Globulin Ratio (1-2) Urine Color Yellow (Yellow) Urine Appearance Clear (Clear) Urine pH 6.5 (5.0-8.0) Ur Specific [place] 1.025 (1.005-1.030) Urine Protein 1+ H (Negative) Urine Glucose (UA) Negative (Negative) Urine Ketones 1+ H (Negative) Urine Occult Blood Negative (Negative) Urine Nitrite Negative (Negative) Urine Bilirubin 2+ H (Negative) Urine Urobilinogen 1.0 (0.2-1.0) Ur Leukocyte Esterase Trace H (Negative) Urine RBC 0-5 (0-5) /hpf Urine WBC 0-5 (0-5) /hpf Ur Epithelial Cells 5-10 H (0-5) /hpf Urine Bacteria Few (FEW) /hpf Urine Mucus Moderate H (FEW) /hpf SARS-CoV-2 RNA ([facility]) Negative (NEGATIVE) 03/27/21 03/27/21 Range/Units 05:34 05:34 WBC 5.28 (3.98-10.04) K/mm3 RBC 3.83 L (3.98-5.22) M/mm3 Hgb 12.7 D (11.2-15.7) gm/dl Hct 36.7 (34.1-44.9) % MCV 95.8 H D (79.4-94.8) fl MCH 33.2 H (25.6-32.2) pg MCHC 34.6 (32.2-35.5) g/dl RDW Std Deviation 44.2 (36.4-46.3) fL Plt Count 173 L (182-369) K/mm3 MPV 10.5 (9.4-12.3) fl Neut % (Auto) 61.9 (34.0-71.1) % Lymph % (Auto) 30.3 (19.3-51.7) % [place] % (Auto) 7.2 (4.7-12.5) % Eos % (Auto) 0.2 L (0.7-5.8) Baso % (Auto) 0.4 (0.1-1.2) % Neut # (Auto) 3.27 (1.56-6.13) K/mm3 Lymph # (Auto) 1.60 (1.18-3.74) K/mm3 [place] # (Auto) 0.38 H (0.24-0.36) K/mm3 Eos # (Auto) 0.01 L (0.04-0.36) K/mm3 Baso # (Auto) 0.02 (0.01-0.08) K/mm3 Sodium 139 (136-145) mEq/L Potassium 3.7 (3.5-5.1) mEq/L Chloride 102 (98-107) mEq/L Carbon Dioxide 31 (21-32) mEq/L Anion Gap 9.7 (5-15) BUN 13 (7-18) mg/dL Creatinine 1.0 (0.55-1.02) mg/dL Est Cr Clr Drug Dosing 47.25 mL/min Estimated GFR (MDRD) 57 (>60) mL/min BUN/Creatinine Ratio 13.0 L (14-18) Glucose 77 (70-99) mg/dL Calcium 7.1 L (8.5-10.1) mg/dL Magnesium 1.7 L (1.8-2.4) mg/dL Total Bilirubin 0.7 (0.2-1.0) mg/dL AST 161 H (15-37) U/L ALT 49 (14-59) U/L Alkaline Phosphatase 37 L (46-116) U/L C-Reactive Protein <0.2 (<1.0) mg/dL Total Protein 5.1 L (6.4-8.2) g/dl Albumin 2.9 L (3.4-5.0) g/dl Globulin 2.2 gm/dL Albumin/Globulin Ratio 1.3 (1-2) Urine Color (Yellow) Urine Appearance (Clear) Urine pH (5.0-8.0) Ur Specific [place] (1.005-1.030) Urine Protein (Negative) Urine Glucose (UA) (Negative) Urine Ketones (Negative) Urine Occult Blood (Negative) Urine Nitrite (Negative) Urine Bilirubin (Negative) Urine Urobilinogen (0.2-1.0) Ur Leukocyte Esterase (Negative) Urine RBC (0-5) /hpf Urine WBC (0-5) /hpf Ur Epithelial Cells (0-5) /hpf Urine Bacteria (FEW) /hpf Urine Mucus (FEW) /hpf SARS-CoV-2 RNA ([facility]) (NEGATIVE) Result Diagrams: 03/27/21 05:34 03/27/21 05:34 Sepsis Event Note - Focused Exam Vital Signs: Vital Signs Temp Pulse Resp BP Pulse Ox 03/27/21 12:29 36.4 C 55 L 16 83/58 L 94 L 03/27/21 08:34 60 85/60 L 03/27/21 07:36 36.9 C 60 14 85/60 L 95 - Problem List & Annotations (1) Hypokalemia due to excessive gastrointestinal loss of potassium SNOMED Code(s): 96741599 Code(s): E87.6 - HYPOKALEMIA Status: Acute Priority: High Current Vi sit: Yes (2) History of breast cancer in adulthood SNOMED Code(s): 228302518 Code(s): Z85.3 - PERSONAL HISTORY OF MALIGNANT NEOPLASM OF BREAST Status: Chronic Priority: Medium Current Visit: No (3) Tobacco use SNOMED Code(s): 621161347 Code(s): Z72.0 - TOBACCO USE Status: Chronic Priority: High Current Visit: Yes (4) Coronary artery disease SNOMED Code(s): 31602732 Code(s): I25.10 - ATHSCL HEART DISEASE OF [place] CORONARY ARTERY W/O ANG PCTRS Status: Chronic Priority: High Current Visit: Yes Qualifiers: Coronary Disease-Associated Artery/Lesion type: [place] artery [place] vs. transplanted heart: [place] heart Associated angina: without angina Qualified Code(s): I25.10 - Atherosclerotic heart disease of [place] coronary artery without angina pectoris - My Orders Last 24 Hours: My Active Orders 03/26/21 17:20 Patient Status [ADT] Routine Oxygen Therapy [RC] PRN Up With Assistance [RC] TIDMEALS VTE/DVT Education [RC] BID Vital Signs [RC] Q4HR Acetaminophen [TylenoL] 650 mg PO Q4H PRN Docusate Sodium [Colace] 100 mg PO BID PRN Ondansetron [Zofran ODT] 4 mg PO Q4H PRN Temazepam [Restoril] 15 mg PO BEDTIME PRN oxyCODONE 5 mg PO Q4H PRN Resuscitation Status Routine 03/26/21 17:30 Nicotine [Habitrol] 14 mg TRDERM DAILY Sodium Chloride 0.9% [Normal Saline] 1,000 ml IV ASDIRECTED 03/27/21 05:45 STOOL CULTURE/SHIGA TOXIN [MREF] Stat 03/27/21 06:45 ALPRAZolam [Xanax] 1 mg PO TID PRN 03/27/21 09:00 Enoxaparin [Lovenox] 40 mg SUBCUT DAILY Furosemide [Lasix] 20 mg PO DAILY Gabapentin [Neurontin] 100 mg PO TID Metoprolol Succinate [Toprol XL] 25 mg PO BID Sertraline [Zoloft] 100 mg PO BID Ticagrelor [Brilinta] 90 mg PO BID cilostazoL [Pletal] 100 mg PO BID 03/27/21 Lunch Heart Healthy Diet [DIET] 03/27/21 11:15 Nitroglycerin [Nitrostat] 0.4 mg SL ASDIRECTED PRN 03/28/21 09:00 Multivitamins/Min/FA/Lut/Zeax [ICaps MV] 1 tab PO DAILY - Assessment Assessment:: I have seen and examined the patient independently of Eber Castellano CNP, and I have discussed the case with her. I have reviewed the plan of care for this patient as outlined by her. Please see orders.
[2021-03-27] MEDS: Sodium Chloride 0.9% 1,000 ML IV SCH (10:50)
[2021-03-27] MEDS ORDERED: Nitroglycerin 0.4 MG Tab.SL SL PRN (11:15)
[2021-03-27] MEDS ORDERED: Sodium Chloride 0.9% 500 ML IV ONE (14:21)
--- NOTE | 2021-03-27 15:18 | PCM.DCSUM1 ---
<Eber Castellano M - Last Filed: 03/27/21 15:19> Discharge Summary - Hospital Course Free Text/Narrative:: 56-year-old female presents the emergency department after a 3-day history of nausea, vomiting, and diarrhea. Patient states she felt well prior to this. She denied any recent fever, chills, cough, sore throat, headache or abdominal pain. She believes that she may have eaten some tainted salad to cause all of this. Her who she lives with has not had any of the similar symptoms. She denied noting any blood in her stools. She was admitted to the hospital observation status when she was found to have a potassium of 2.3. The patient received IV and p.o. potassium supplementation and IV fluids. Patient has had no nausea or vomiting for the past 24 hours and states that she felt much better. However at the time of discharge she states she was still having some watery stools. Stools were sent for culture and these are pending. Patient's blood pressure had been low the entire time she has been in the hospital with systolic pressures in the 80s. She however has been asymptomatic with any of this as she denies any dizziness or lightheadedness with ambulation. Prior to discharge the patient was given a 500 mL normal saline bolus which did bring her systolic blood pressure to 92. She states that she normally does have a lower than normal blood pressure. At the time of discharge, the patient was very eager to go home as she states she was not liking the hospital food or the beds. She was able to tolerate lunch without any nausea and vomiting. Diagnosis: Stroke: No - Discharge Data Discharge Date: 03/27/21 Discharge Disposition: Home, Self-Care 01 Condition: Good - Referral to Home Health Primary Care Physician: Evelyne Moreno NP - Discharge Diagnosis/Problem(s) (1) Hypokalemia due to excessive gastrointestinal loss of potassium SNOMED Code(s): 22842278 ICD Code: E87.6 - HYPOKALEMIA Status: Acute Priority: High Current Visit: Yes (2) Coronary artery disease SNOMED Code(s): 09239851 ICD Code: I25.10 - ATHSCL HEART DISEASE OF [place] CORONARY ARTERY W/O ANG PCTRS Status: Chronic Priority: High Current Visit: Yes Qualifiers: Coronary Disease-Associated Artery/Lesion type: [place] artery [place] vs. transplanted heart: [place] heart Associated angina: without angina Qualified Code(s): I25.10 - Atherosclerotic heart disease of [place] coronary artery without angina pectoris (3) Tobacco use SNOMED Code(s): 709372564 ICD Code: Z72.0 - TOBACCO USE Status: Chronic Priority: High Current Visit: Yes (4) History of breast cancer in adulthood SNOMED Code(s): 254633507 ICD Code: Z85.3 - PERSONAL HISTORY OF MALIGNANT NEOPLASM OF BREAST Status: Chronic Priority: Medium Current Visit: No - Patient Summary/Data Hospital Course: 56-year-old female with a 3-day history of nausea, vomiting, and diarrhea. Subsequently admitted to the hospital under observation status. Potassium level 2.3 in the emergency department. Potassium was supplemented and is now 3.7 with a magnesium level of 1.7 this morning. She has not eaten breakfast and denies having any appetite. Will allow her to be discharged to home once she can tolerate a diet. She has had 3 bouts of watery diarrhea stools overnight. Will supplement 40 mEq of potassium orally this morning as well as 400 mg magnesium oxide. We will continue IV fluids at this time as patient is slightly hypotensive however she is not symptomatic. Patient is receiving Lovenox for DVT prophylaxis. She is a full code. Will reevaluate pending discharge after lunch. - Plan Plan:: The patient is a 56-year-old lady who has presented to the emergency department out of concern for nausea and vomiting and diarrhea. She will be admitted to observation and her potassium will be replaced slowly and her fluids will be continued to help with her GI losses. I have ordered repeat laboratory studies for the morning. She will also have DVT prophylaxis with use of Lovenox. I have ordered cultures of her stools for various bacteria. She will have regular diet as tolerated. I have also looked at her home medications and asked for those to be confirmed and alerted in order to reconcile. The patient should be appropriate for discharge once her symptoms have been controlled and her electrolytes have been replaced. Repeat laboratory studies have been ordered for the morning. I have also ordered the magnesium for today. Pt was able to tolerate lunch. She states she is feeling much better, however is still having loose stools. She is requesting to be discharged to home as she states she will eat better and get more rest there. BP at noon was 83 systolic. Again, she is asymptomatic. She states that she normally runs a low blood pressure as a baseline. The patient received a 500ml NS bolus and recheck of BP was 92 systolic. I will discharge her to home. She will need to follow up with her primary care provider in one week. - Patient Instructions Diet, Other: bland diet for the next 24 hours and then advance as tolerated Activity: As Tolerated Notify Provider of: Fever, Nausea and/or Vomiting Other/Special Instructions: Go home and rest for the next couple of days. Drink plenty of fluids such as gatorade or powerade to replenish electrolytes. Eat a bland diet for the next 24 hours and then advance as tolerated. Bananas, rice, applesauce, oatmeal, toast, etc. Resume lasix dose on Friday, March 28, 2020. Follow up with your primary care provider in 1 week or sooner if needed. Will call you with stool studies. - Discharge Plan Home Medications: Home Meds RX: Sertraline [Zoloft] 100 mg PO BID 11/03/18 [History] Metoprolol Succinate [Toprol Xl] 25 mg PO BID 11/09/18 [History] RX: Nitroglycerin 0.4 mg SL ASDIRECTED 11/09/18 [History] RX: atorvaSTATin [Lipitor] 40 mg PO DAILY 11/09/18 [History] Ticagrelor [Brilinta] 90 mg PO BID 11/09/18 [History] Aspirin [[place] Aspirin] 81 mg PO DAILY 11/26/18 [History] Acetaminophen with Codeine [Acetaminophen-Cod #3] 1 tab PO Q4HR PRN 03/27/21 [History] Furosemide [Lasix] 20 mg PO DAILY 03/27/21 [History] Multivit-Minerals/Folic Acid [Multivitamin Gummies] 1 tab PO DAILY 03/27/21 [History] RX: ALPRAZolam [Xanax] 1 mg PO TID PRN 03/27/21 [History] RX: Gabapentin [Neurontin] 100 mg PO TID 03/27/21 [History] RX: cilostazoL [Cilostazol] 100 mg PO BID 03/27/21 [History] Oxygen Therapy Mode: Room Air Patient Handouts: Steps to Quit Smoking Forms: ED Department Discharge Referrals: Evelyne Moreno NP [Primary Care Provider] - 04/05/21 11:30 am (Please arrive at 11:15 to check in) - Discharge Summary/Plan Comment DC Time >30 min.: No - General Info Date of Service: 03/27/21 Admission Dx/Problem (Free Text: Intractable nausea and vomiting with diarrhea, severe hypokalemia. Hypokalemia due to GI loss. Functional Status: Reports: Pain Controlled, Tolerating Diet, Ambulating, Urinating - Review of Systems General: Reports: No Symptoms HEENT: Reports: No Symptoms Pulmonary: Reports: No Symptoms Cardiovascular: Reports: No Symptoms Gastrointestinal: Reports: Diarrhea Genitourinary: Reports: No Symptoms Musculoskeletal: Reports: No Symptoms Skin: Reports: No Symptoms Neurological: Reports: No Symptoms Psychiatric: Reports: No Symptoms - Patient Data Vitals - Most Recent: Last Vital Signs Temp 97.5 F 03/27/21 12:29 Pulse 55 L 03/27/21 12:29 Resp 16 03/27/21 12:29 BP 83/58 L 03/27/21 12:29 Pulse Ox 94 L 03/27/21 12:29 Weight - Most Recent: 48.081 kg I&O - Last 24 hours: Intake & Output 03/27/21 03/27/21 03/27/21 06:59 14:59 22:59 Intake Total 1475 120 Output Total 400 Balance 1075 120 Lab Results - Last 24 hrs: Laboratory Results - last 24 hr 03/26/21 03/26/21 03/26/21 Range/Units 14:16 15:10 15:10 WBC 4.58 (3.98-10.04) K/mm3 RBC 4.62 (3.98-5.22) M/mm3 Hgb 15.3 D (11.2-15.7) gm/dl Hct 42.4 (34.1-44.9) % MCV 91.8 D (79.4-94.8) fl MCH 33.1 H (25.6-32.2) pg MCHC 36.1 H (32.2-35.5) g/dl RDW Std Deviation 43.0 (36.4-46.3) fL Plt Count 217 (182-369) K/mm3 MPV 10.5 (9.4-12.3) fl Neut % (Auto) 70.3 (34.0-71.1) % Lymph % (Auto) 22.7 (19.3-51.7) % [place] % (Auto) 6.8 (4.7-12.5) % Eos % (Auto) 0 L (0.7-5.8) Baso % (Auto) 0.2 (0.1-1.2) % Neut # (Auto) 3.22 (1.56-6.13) K/mm3 Lymph # (Auto) 1.04 L (1.18-3.74) K/mm3 [place] # (Auto) 0.31 (0.24-0.36) K/mm3 Eos # (Auto) 0.00 L (0.04-0.36) K/mm3 Baso # (Auto) 0.01 (0.01-0.08) K/mm3 Sodium 138 (136-145) mEq/L Potassium 2.3 L* (3.5-5.1) mEq/L Chloride 94 L (98-107) mEq/L Carbon Dioxide 35 H (21-32) mEq/L Anion Gap 11.3 (5-15) BUN 15 (7-18) mg/dL Creatinine 1.1 H (0.55-1.02) mg/dL Est Cr Clr Drug Dosing 44.45 mL/min Estimated GFR (MDRD) 51 (>60) mL/min BUN/Creatinine Ratio 13.6 L (14-18) Glucose 103 H (70-99) mg/dL Calcium 8.3 L (8.5-10.1) mg/dL Magnesium 1.9 (1.8-2.4) mg/dL Total Bilirubin 1.1 H (0.2-1.0) mg/dL AST 135 H (15-37) U/L ALT 54 (14-59) U/L Alkaline Phosphatase 46 (46-116) U/L Troponin I < 0.017 (0.00-0.056) ng/mL C-Reactive Protein <0.2 (<1.0) mg/dL Total Protein 6.3 L (6.4-8.2) g/dl Albumin 3.6 (3.4-5.0) g/dl Globulin 2.7 gm/dL Albumin/Globulin Ratio 1.3 (1-2) Urine Color (Yellow) Urine Appearance (Clear) Urine pH (5.0-8.0) Ur Specific [place] (1.005-1.030) Urine Protein (Negative) Urine Glucose (UA) (Negative) Urine Ketones (Negative) Urine Occult Blood (Negative) Urine Nitrite (Negative) Urine Bilirubin (Negative) Urine Urobilinogen (0.2-1.0) Ur Leukocyte Esterase (Negative) Urine RBC (0-5) /hpf Urine WBC (0-5) /hpf Ur Epithelial Cells (0-5) /hpf Urine Bacteria (FEW) /hpf Urine Mucus (FEW) /hpf SARS-CoV-2 RNA (MEKA) (NEGATIVE) 03/26/21 03/26/21 03/27/21 Range/Units 16:07 16:37 05:34 WBC 5.28 (3.98-10.04) K/mm3 RBC 3.83 L (3.98-5.22) M/mm3 Hgb 12.7 D (11.2-15.7) gm/dl Hct 36.7 (34.1-44.9) % MCV 95.8 H D (79.4-94.8) fl MCH 33.2 H (25.6-32.2) pg MCHC 34.6 (32.2-35.5) g/dl RDW Std Deviation 44.2 (36.4-46.3) fL Plt Count 173 L (182-369) K/mm3 MPV 10.5 (9.4-12.3) fl Neut % (Auto) 61.9 (34.0-71.1) % Lymph % (Auto) 30.3 (19.3-51.7) % [place] % (Auto) 7.2 (4.7-12.5) % Eos % (Auto) 0.2 L (0.7-5.8) Baso % (Auto) 0.4 (0.1-1.2) % Neut # (Auto) 3.27 (1.56-6.13) K/mm3 Lymph # (Auto) 1.60 (1.18-3.74) K/mm3 [place] # (Auto) 0.38 H (0.24-0.36) K/mm3 Eos # (Auto) 0.01 L (0.04-0.36) K/mm3 Baso # (Auto) 0.02 (0.01-0.08) K/mm3 Sodium (136-145) mEq/L Potassium (3.5-5.1) mEq/L Chloride (98-107) mEq/L Carbon Dioxide (21-32) mEq/L Anion Gap (5-15) BUN (7-18) mg/dL Creatinine (0.55-1.02) mg/dL Est Cr Clr Drug Dosing mL/min Estimated GFR (MDRD) (>60) mL/min BUN/Creatinine Ratio (14-18) Glucose (70-99) mg/dL Calcium (8.5-10.1) mg/dL Magnesium (1.8-2.4) mg/dL Total Bilirubin (0.2-1.0) mg/dL AST (15-37) U/L ALT (14-59) U/L Alkaline Phosphatase (46-116) U/L Troponin I (0.00-0.056) ng/mL C-Reactive Protein (<1.0) mg/dL Total Protein (6.4-8.2) g/dl Albumin (3.4-5.0) g/dl Globulin gm/dL Albumin/Globulin Ratio (1-2) Urine Color Yellow (Yellow) Urine Appearance Clear (Clear) Urine pH 6.5 (5.0-8.0) Ur Specific [place] 1.025 (1.005-1.030) Urine Protein 1+ H (Negative) Urine Glucose (UA) Negative (Negative) Urine Ketones 1+ H (Negative) Urine Occult Blood Negative (Negative) Urine Nitrite Negative (Negative) Urine Bilirubin 2+ H (Negative) Urine Urobilinogen 1.0 (0.2-1.0) Ur Leukocyte Esterase Trace H (Negative) Urine RBC 0-5 (0-5) /hpf Urine WBC 0-5 (0-5) /hpf Ur Epithelial Cells 5-10 H (0-5) /hpf Urine Bacteria Few (FEW) /hpf Urine Mucus Moderate H (FEW) /hpf SARS-CoV-2 RNA (MEKA) Negative (NEGATIVE) 03/27/21 Range/Units 05:34 WBC (3.98-10.04) K/mm3 RBC (3.98-5.22) M/mm3 Hgb (11.2-15.7) gm/dl Hct (34.1-44.9) % MCV (79.4-94.8) fl MCH (25.6-32.2) pg MCHC (32.2-35.5) g/dl RDW Std Deviation (36.4-46.3) fL Plt Count (182-369) K/mm3 MPV (9.4-12.3) fl Neut % (Auto) (34.0-71.1) % Lymph % (Auto) (19.3-51.7) % [place] % (Auto) (4.7-12.5) % Eos % (Auto) (0.7-5.8) Baso % (Auto) (0.1-1.2) % Neut # (Auto) (1.56-6.13) K/mm3 Lymph # (Auto) (1.18-3.74) K/mm3 [place] # (Auto) (0.24-0.36) K/mm3 Eos # (Auto) (0.04-0.36) K/mm3 Baso # (Auto) (0.01-0.08) K/mm3 Sodium 139 (136-145) mEq/L Potassium 3.7 (3.5-5.1) mEq/L Chloride 102 (98-107) mEq/L Carbon Dioxide 31 (21-32) mEq/L Anion Gap 9.7 (5-15) BUN 13 (7-18) mg/dL Creatinine 1.0 (0.55-1.02) mg/dL Est Cr Clr Drug Dosing 47.25 mL/min Estimated GFR (MDRD) 57 (>60) mL/min BUN/Creatinine Ratio 13.0 L (14-18) Glucose 77 (70-99) mg/dL Calcium 7.1 L (8.5-10.1) mg/dL Magnesium 1.7 L (1.8-2.4) mg/dL Total Bilirubin 0.7 (0.2-1.0) mg/dL AST 161 H (15-37) U/L ALT 49 (14-59) U/L Alkaline Phosphatase 37 L (46-116) U/L Troponin I (0.00-0.056) ng/mL C-Reactive Protein <0.2 (<1.0) mg/dL Total Protein 5.1 L (6.4-8.2) g/dl Albumin 2.9 L (3.4-5.0) g/dl Globulin 2.2 gm/dL Albumin/Globulin Ratio 1.3 (1-2) Urine Color (Yellow) Urine Appearance (Clear) Urine pH (5.0-8.0) Ur Specific [place] (1.005-1.030) Urine Protein (Negative) Urine Glucose (UA) (Negative) Urine Ketones (Negative) Urine Occult Blood (Negative) Urine Nitrite (Negative) Urine Bilirubin (Negative) Urine Urobilinogen (0.2-1.0) Ur Leukocyte Esterase (Negative) Urine RBC (0-5) /hpf Urine WBC (0-5) /hpf Ur Epithelial Cells (0-5) /hpf Urine Bacteria (FEW) /hpf Urine Mucus (FEW) /hpf SARS-CoV-2 RNA (MEKA) (NEGATIVE) Med Orders - Current: Current Medications Acetaminophen (Acetaminophen 325 Mg Tab) 650 mg PO Q4H PRN PRN Reason: Pain (Mild 1-3)/fever Alprazolam (Alprazolam 1 Mg Tab) 1 mg PO TID PRN PRN Reason: Anxiety Cilostazol (Cilostazol 100 Mg Tab) 100 mg PO BID [facility] Last Admin: 03/27/21 08:34 Dose: 100 mg Documented by: Docusate Sodium (Docusate Sodium 100 Mg Cap) 100 mg PO BID PRN PRN Reason: Constipation Enoxaparin Sodium (Enoxaparin 40 Mg/0.4 Ml Syringe) 40 mg SUBCUT DAILY [facility] Last Admin: 03/27/21 08:32 Dose: 40 mg Documented by: Furosemide (Furosemide 20 Mg Tab) 20 mg PO DAILY [facility] Last Admin: 03/27/21 08:34 Dose: Not Given Documented by: Gabapentin (Gabapentin 100 Mg Cap) 100 mg PO TID [facility] Last Admin: 03/27/21 08:34 Dose: 100 mg Documented by: Sodium Chloride (Normal Saline) 1,000 mls @ 75 mls/hr IV ASDIRECTED [facility] Last Admin: 03/27/21 10:50 Dose: 75 mls/hr Documented by: Metoprolol Succinate (Metoprolol Succinate 25 Mg Tab.Er) 25 mg PO BID [facility] Last Admin: 03/27/21 08:34 Dose: 25 mg Documented by: Nicotine (Nicotine 14 Mg/24 Hr Patch) 14 mg TRDERM DAILY [facility] Last Admin: 03/27/21 08:33 Dose: Not Given Documented by: Nitroglycerin (Nitroglycerin 0.4 Mg Tab.Sl) 0.4 mg SL ASDIRECTED PRN PRN Reason: chest pain Ondansetron HCl (Ondansetron 4 Mg Tab.Dis) 4 mg PO Q4H PRN PRN Reason: nausea, able to take PO Oxycodone HCl (Oxycodone 5 Mg Tab) 5 mg PO Q4H PRN PRN Reason: Pain (moderate 4-6) Sertraline HCl (Sertraline 50 Mg Tab) 100 mg PO BID [facility] Last Admin: 03/27/21 08:34 Dose: 100 mg Documented by: Sodium Chloride (Sodium Chloride 0.9% 10 Ml Syringe) 10 ml FLUSH ASDIRECTED PRN PRN Reason: Keep Vein Open Last Admin: 03/26/21 15:10 Dose: 10 ml Documented by: Temazepam (Temazepam 15 Mg Cap) 15 mg PO BEDTIME PRN PRN Reason: Sleep Ticagrelor (Ticagrelor 90 Mg Tab) 90 mg PO BID [facility] Last Admin: 03/27/21 08:33 Dose: 90 mg Documented by: Vit A/Vit C/Vit E/Selen/Cu/Zn/Lutei (Multivitamins With Minerals/Folic Acid/Lutein/Zeaxanth Tab) 1 tab PO DAILY [facility] Discontinued Medications Sodium Chloride (Normal Saline) 1,000 mls @ 999 mls/hr IV NOW STA Stop: 03/26/21 15:16 Last Admin: 03/26/21 15:10 Dose: 999 mls/hr Documented by: Sodium Chloride (Normal Saline) 1,000 mls @ 150 mls/hr IV NOW STA Stop: 03/26/21 22:36 Last Admin: 03/26/21 16:04 Dose: 150 mls/hr Documented by: Potassium Chloride 10 meq/ (Premix) 100 mls @ 100 mls/hr IV Q1H SHUN Stop: 03/26/21 23:59 Last Admin: 03/27/21 02:23 Dose: 100 mls/hr Documented by: Magnesium Sulfate 2 gm/ Premix 50 mls @ 25 mls/hr IV ONETIME ONE Stop: 03/27/21 08:48 Last Admin: 03/27/21 07:49 Dose: 25 mls/hr Documented by: Sodium Chloride (Normal Saline) 500 mls @ 999 mls/hr IV .BOLUS ONE Stop: 03/27/21 14:51 Last Admin: 03/27/21 14:43 Dose: 999 mls/hr Documented by: Magnesium Oxide (Magnesium Oxide 400 Mg Tab) 400 mg PO ONETIME ONE Stop: 03/27/21 09:01 Last Admin: 03/27/21 09:00 Dose: 400 mg Documented by: Ondansetron HCl (Ondansetron 4 Mg/2 Ml Sdv) 4 mg IVPUSH ONETIME ONE Stop: 03/26/21 14:17 Last Admin: 03/26/21 15:10 Dose: 4 mg Documented by: Potassium Chloride (Potassium Chloride 20 Meq Tab.Er) 40 meq PO ONETIME ONE Stop: 03/26/21 16:02 Last Admin: 03/26/21 16:27 Dose: 40 meq Documented by: Potassium Chloride (Potassium Chloride 20 Meq Tab.Er) 40 meq PO ONETIME ONE Stop: 03/27/21 09:01 Last Admin: 03/27/21 09:00 Dose: 40 meq Documented by: - Exam Quality Assessment: Reports: DVT Prophylaxis (lovenox) General: Reports: Alert, Oriented, Cooperative, No Acute Distress HEENT: Reports: Pupils Equal, Mucous Membr. Moist/[place] Neck: Reports: Supple, Trachea Midline Lungs: Reports: Clear to Auscultation, Normal Respiratory Effort Cardiovascular: Reports: Regular Rate, Regular Rhythm GI/Abdominal Exam: Normal Bowel Sounds, Soft, Non-Tender, No Distention (Female) Exam: Deferred Rectal (Female) Exam: Deferred Back Exam: Reports: Normal Inspection Extremities: Normal Inspection, No Pedal Edema Skin: Reports: Warm, Dry, Intact Neurological: Reports: No New Focal Deficit Psy/Mental Status: Reports: Alert, Normal Affect, Normal Mood <Leonard Haji - Last Filed: 03/27/21 16:13> Discharge Summary - Referral to Home Health Primary Care Physician: Evelyne Moreno NP - Discharge Diagnosis/Problem(s) (1) Hypokalemia due to excessive gastrointestinal loss of potassium SNOMED Code(s): 66835215 ICD Code: E87.6 - HYPO[place] Status: Acute Priority: High Current Visit: Yes (2) History of breast cancer in adulthood SNOMED Code(s): 535710734 ICD Code: Z85.3 - PERSONAL HISTORY OF [place] NEOPLASM OF BREAST Status: Chronic Priority: Medium Current Visit: No (3) Tobacco use SNOMED Code(s): 266337340 ICD Code: Z72.0 - TOBACCO USE Status: Chronic Priority: High Current Visit: Yes (4) Coronary artery disease SNOMED Code(s): 70351714 ICD Code: I25.10 - ATHSCL HEART DISEASE OF [place] CORONARY ARTERY W/O ANG PCTRS Status: Chronic Priority: High Current Visit: Yes Qualifiers: Coronary Disease-Associated Artery/Lesion type: [place] artery [place] vs. transplanted heart: [place] heart Associated angina: without angina Qualified Code(s): I25.10 - Atherosclerotic heart disease of [place] coronary artery without angina pectoris - Patient Summary/Data Hospital Course: I have seen and examined the patient independently of Eber Castellano CNP, and I have discussed the case with her. I have reviewed the plan of care for this patient as outlined by her. Please see orders. - Patient Data Vitals - Most Recent: Last Vital Signs Temp 36.4 C 03/27/21 12:29 Pulse 55 L 03/27/21 12:29 Resp 16 03/27/21 12:29 BP 83/58 L 03/27/21 12:29 Pulse Ox 94 L 03/27/21 12:29 I&O - Last 24 hours: Intake & Output 03/27/21 03/27/21 03/27/21 06:59 14:59 22:59 Intake Total 1475 120 Output Total 400 Balance 1075 120 Lab Results - Last 24 hrs: Laboratory Results - last 24 hr 03/26/21 03/26/21 03/26/21 Range/Units 14:16 16:07 16:37 WBC (3.98-10.04) K/mm3 RBC (3.98-5.22) M/mm3 Hgb (11.2-15.7) gm/dl Hct (34.1-44.9) % MCV (79.4-94.8) fl MCH (25.6-32.2) pg MCHC (32.2-35.5) g/dl RDW Std Deviation (36.4-46.3) fL Plt Count (182-369) K/mm3 MPV (9.4-12.3) fl Neut % (Auto) (34.0-71.1) % Lymph % (Auto) (19.3-51.7) % [place] % (Auto) (4.7-12.5) % Eos % (Auto) (0.7-5.8) Baso % (Auto) (0.1-1.2) % Neut # (Auto) (1.56-6.13) K/mm3 Lymph # (Auto) (1.18-3.74) K/mm3 [place] # (Auto) (0.24-0.36) K/mm3 Eos # (Auto) (0.04-0.36) K/mm3 Baso # (Auto) (0.01-0.08) K/mm3 Sodium (136-145) mEq/L Potassium (3.5-5.1) mEq/L Chloride (98-107) mEq/L Carbon Dioxide (21-32) mEq/L Anion Gap (5-15) BUN (7-18) mg/dL Creatinine (0.55-1.02) mg/dL Est Cr Clr Drug Dosing mL/min Estimated GFR (MDRD) (>60) mL/min BUN/Creatinine Ratio (14-18) Glucose (70-99) mg/dL Calcium (8.5-10.1) mg/dL Magnesium 1.9 (1.8-2.4) mg/dL Total Bilirubin (0.2-1.0) mg/dL AST (15-37) U/L ALT (14-59) U/L Alkaline Phosphatase (46-116) U/L C-Reactive Protein (<1.0) mg/dL Total Protein (6.4-8.2) g/dl Albumin (3.4-5.0) g/dl Globulin gm/dL Albumin/Globulin Ratio (1-2) Urine Color Yellow (Yellow) Urine Appearance Clear (Clear) Urine pH 6.5 (5.0-8.0) Ur Specific [place] 1.025 (1.005-1.030) Urine Protein 1+ H (Negative) Urine Glucose (UA) Negative (Negative) Urine Ketones 1+ H (Negative) Urine Occult Blood Negative (Negative) Urine Nitrite Negative (Negative) Urine Bilirubin 2+ H (Negative) Urine Urobilinogen 1.0 (0.2-1.0) Ur Leukocyte Esterase Trace H (Negative) Urine RBC 0-5 (0-5) /hpf Urine WBC 0-5 (0-5) /hpf Ur Epithelial Cells 5-10 H (0-5) /hpf Urine Bacteria Few (FEW) /hpf Urine Mucus Moderate H (FEW) /hpf SARS-CoV-2 RNA (MEKA) Negative (NEGATIVE) 03/27/21 03/27/21 Range/Units 05:34 05:34 WBC 5.28 (3.98-10.04) K/mm3 RBC 3.83 L (3.98-5.22) M/mm3 Hgb 12.7 D (11.2-15.7) gm/dl Hct 36.7 (34.1-44.9) % MCV 95.8 H D (79.4-94.8) fl MCH 33.2 H (25.6-32.2) pg MCHC 34.6 (32.2-35.5) g/dl RDW Std Deviation 44.2 (36.4-46.3) fL Plt Count 173 L (182-369) K/mm3 MPV 10.5 (9.4-12.3) fl Neut % (Auto) 61.9 (34.0-71.1) % Lymph % (Auto) 30.3 (19.3-51.7) % [place] % (Auto) 7.2 (4.7-12.5) % Eos % (Auto) 0.2 L (0.7-5.8) Baso % (Auto) 0.4 (0.1-1.2) % Neut # (Auto) 3.27 (1.56-6.13) K/mm3 Lymph # (Auto) 1.60 (1.18-3.74) K/mm3 [place] # (Auto) 0.38 H (0.24-0.36) K/mm3 Eos # (Auto) 0.01 L (0.04-0.36) K/mm3 Baso # (Auto) 0.02 (0.01-0.08) K/mm3 Sodium 139 (136-145) mEq/L Potassium 3.7 (3.5-5.1) mEq/L Chloride 102 (98-107) mEq/L Carbon Dioxide 31 (21-32) mEq/L Anion Gap 9.7 (5-15) BUN 13 (7-18) mg/dL Creatinine 1.0 (0.55-1.02) mg/dL Est Cr Clr Drug Dosing 47.25 mL/min Estimated GFR (MDRD) 57 (>60) mL/min BUN/Creatinine Ratio 13.0 L (14-18) Glucose 77 (70-99) mg/dL Calcium 7.1 L (8.5-10.1) mg/dL Magnesium 1.7 L (1.8-2.4) mg/dL Total Bilirubin 0.7 (0.2-1.0) mg/dL AST 161 H (15-37) U/L ALT 49 (14-59) U/L Alkaline Phosphatase 37 L (46-116) U/L C-Reactive Protein <0.2 (<1.0) mg/dL Total Protein 5.1 L (6.4-8.2) g/dl Albumin 2.9 L (3.4-5.0) g/dl Globulin 2.2 gm/dL Albumin/Globulin Ratio 1.3 (1-2) Urine Color (Yellow) Urine Appearance (Clear) Urine pH (5.0-8.0) Ur Specific [place] (1.005-1.030) Urine Protein (Negative) Urine Glucose (UA) (Negative) Urine Ketones (Negative) Urine Occult Blood (Negative) Urine Nitrite (Negative) Urine Bilirubin (Negative) Urine Urobilinogen (0.2-1.0) Ur Leukocyte Esterase (Negative) Urine RBC (0-5) /hpf Urine WBC (0-5) /hpf Ur Epithelial Cells (0-5) /hpf Urine Bacteria (FEW) /hpf Urine Mucus (FEW) /hpf SARS-CoV-2 RNA ([facility]KA) (NEGATIVE) Med Orders - Current: Current Medications Acetaminophen (Acetaminophen 325 Mg Tab) 650 mg PO Q4H PRN PRN Reason: Pain (Mild 1-3)/fever Alprazolam (Alprazolam 1 Mg Tab) 1 mg PO TID PRN PRN Reason: Anxiety Cilostazol (Cilostazol 100 Mg Tab) 100 mg PO BID [facility] Last Admin: 03/27/21 08:34 Dose: 100 mg Documented by: Docusate Sodium (Docusate Sodium 100 Mg Cap) 100 mg PO BID PRN PRN Reason: Constipation Enoxaparin Sodium (Enoxaparin 40 Mg/0.4 Ml Syringe) 40 mg SUBCUT DAILY [facility] Last Admin: 03/27/21 08:32 Dose: 40 mg Documented by: Furosemide (Furosemide 20 Mg Tab) 20 mg PO DAILY [facility] Last Admin: 03/27/21 08:34 Dose: Not Given Documented by: Gabapentin (Gabapentin 100 Mg Cap) 100 mg PO TID [facility] Last Admin: 03/27/21 08:34 Dose: 100 mg Documented by: Sodium Chloride (Normal Saline) 1,000 mls @ 75 mls/hr IV ASDIRECTED [facility] Last Admin: 03/27/21 10:50 Dose: 75 mls/hr Documented by: Metoprolol Succinate (Metoprolol Succinate 25 Mg Tab.Er) 25 mg PO BID [facility] Last Admin: 03/27/21 08:34 Dose: 25 mg Documented by: Nicotine (Nicotine 14 Mg/24 Hr Patch) 14 mg TRDERM DAILY [facility] Last Admin: 03/27/21 08:33 Dose: Not Given Documented by: Nitroglycerin (Nitroglycerin 0.4 Mg Tab.Sl) 0.4 mg SL ASDIRECTED PRN PRN Reason: chest pain Ondansetron HCl (Ondansetron 4 Mg Tab.Dis) 4 mg PO Q4H PRN PRN Reason: nausea, able to take PO Oxycodone HCl (Oxycodone 5 Mg Tab) 5 mg PO Q4H PRN PRN Reason: Pain (moderate 4-6) Sertraline HCl (Sertraline 50 Mg Tab) 100 mg PO BID [facility] Last Admin: 03/27/21 08:34 Dose: 100 mg Documented by: Sodium Chloride (Sodium Chloride 0.9% 10 Ml Syringe) 10 ml FLUSH ASDIRECTED PRN PRN Reason: Keep Vein Open Last Admin: 03/26/21 15:10 Dose: 10 ml Documented by: Temazepam (Temazepam 15 Mg Cap) 15 mg PO BEDTIME PRN PRN Reason: Sleep Ticagrelor (Ticagrelor 90 Mg Tab) 90 mg PO BID [facility] Last Admin: 03/27/21 08:33 Dose: 90 mg Documented by: Vit A/Vit C/Vit E/Selen/Cu/Zn/Lutei (Multivitamins With Minerals/Folic Acid/Lutein/Zeaxanth Tab) 1 tab PO DAILY [facility] Discontinued Medications Sodium Chloride (Normal Saline) 1,000 mls @ 999 mls/hr IV NOW STA Stop: 03/26/21 15:16 Last Admin: 03/26/21 15:10 Dose: 999 mls/hr Documented by: Sodium Chloride (Normal Saline) 1,000 mls @ 150 mls/hr IV NOW STA Stop: 03/26/21 22:36 Last Admin: 03/26/21 16:04 Dose: 150 mls/hr Documented by: Potassium Chloride 10 meq/ (Premix) 100 mls @ 100 mls/hr IV Q1H SHUN Stop: 03/26/21 23:59 Last Admin: 03/27/21 02:23 Dose: 100 mls/hr Documented by: Magnesium Sulfate 2 gm/ Premix 50 mls @ 25 mls/hr IV ONETIME ONE Stop: 03/27/21 08:48 Last Admin: 03/27/21 07:49 Dose: 25 mls/hr Documented by: Sodium Chloride (Normal Saline) 500 mls @ 999 mls/hr IV .BOLUS ONE Stop: 03/27/21 14:51 Last Admin: 03/27/21 14:43 Dose: 999 mls/hr Documented by: Magnesium Oxide (Magnesium Oxide 400 Mg Tab) 400 mg PO ONETIME ONE Stop: 03/27/21 09:01 Last Admin: 03/27/21 09:00 Dose: 400 mg Documented by: Ondansetron HCl (Ondansetron 4 Mg/2 Ml Sdv) 4 mg IVPUSH ONETIME ONE Stop: 03/26/21 14:17 Last Admin: 03/26/21 15:10 Dose: 4 mg Documented by: Potassium Chloride (Potassium Chloride 20 Meq Tab.Er) 40 meq PO ONETIME ONE Stop: 03/26/21 16:02 Last Admin: 03/26/21 16:27 Dose: 40 meq Documented by: Potassium Chloride (Potassium Chloride 20 Meq Tab.Er) 40 meq PO ONETIME ONE Stop: 03/27/21 09:01 Last Admin: 03/27/21 09:00 Dose: 40 meq Documented by:
[2021-03-28] MEDS ORDERED: Multivitamins with Minerals/Folic Acid/Lutein/Zeaxanth Tab PO SCH (09:00)
== END 2021-03-27 16:05 | disposition home or self-care (01) ==
LOC: JD.ED 13:10 → JD.MS 17:30
PROVIDERS: ADMIT Internal Medicine; ATTEND Internal Medicine
DX: R11.2 Nausea with vomiting, unspecified (principal); R19.7 Diarrhea, unspecified; E87.6 Hypokalemia; I25.10 Atherosclerotic heart disease of native coronary artery without angina pectoris; I25.2 Old myocardial infarction; J44.9 Chronic obstructive pulmonary disease, unspecified; F17.210 Nicotine dependence, cigarettes, uncomplicated; Z85.3 Personal history of malignant neoplasm of breast; Z20.822 Contact with and (suspected) exposure to COVID-19; Z88.8 Allergy status to other drugs, medicaments and biological substances; Z88.0 Allergy status to penicillin; Z79.899 Other long term (current) drug therapy
CPT/HCPCS: 36415; 71046; 80053; 81001; 83735; 84484; 85025; 86140; 87045; 87046; 87635; 87899; 93005; A9270; J1650; J2405; J3475; J3480; J7030; 93010; 96365; 96366; 96367; 96372; 96375; 99217; 99218; 99284; 99285-25; G0378; U0002

== ENCOUNTER 2022-04-30 18:08 | Inpatient (IN) | payer BC ==
[2022-04-30] MEDS ORDERED: Sodium Chloride 0.9% 10 ML Syringe FLUSH PRN (19:05)
[2022-04-30] MEDS ORDERED: Albuterol/Ipratropium 3.0-0.5 MG/3 ML Neb Soln NEB ONE (19:24)
[2022-04-30] MEDS ORDERED: methylPREDNISolone Sodium Succinate 125 MG/2 ML SDV IVPUSH ONE (20:10)
[2022-04-30] MEDS ORDERED: Furosemide 20 MG/2 ML VIAL IVPUSH ONE (21:05)
[2022-04-30] MEDS ORDERED: Iopamidol 755 Mg/ML 100 ML Bottle IVPUSH ONE (21:06)
[2022-04-30] MEDS ORDERED: Sodium Chloride 0.9% 10 ML Syringe FLUSH ONE (21:06)
[2022-04-30] MEDS ORDERED: Sodium Chloride 0.9% 100 ML IV SCH (21:15)
[2022-04-30] MEDS ORDERED: LORazepam 2 MG/ML SDV IVPUSH ONE (21:31)
[2022-05-01] MEDS ORDERED: ALPRAZolam 1 MG Tab PO PRN ×2 (02:06→07:09)
[2022-05-01] MEDS ORDERED: Furosemide 20 MG/2 ML VIAL IVPUSH ONE (07:30)
[2022-05-01] MEDS: Furosemide 40 MG/4 ML VIAL IVPUSH SCH (08:42)
[2022-05-01] MEDS: Aspirin 81 MG Tab.Chew PO SCH (08:45)
[2022-05-01] MEDS: Metoprolol Succinate 25 MG Tab.ER PO SCH (08:46)
[2022-05-01] MEDS ORDERED: Potassium Chloride 10 MEQ Tab.ER PO SCH (09:00)
[2022-05-01] MEDS ORDERED: PREGABALIN 50 MG PO SCH (09:00)
[2022-05-01] MEDS: Enoxaparin 30 MG/0.3 ML Syringe SUBCUT SCH (09:33)
[2022-05-01] MEDS ORDERED: Pregabalin 25 MG Cap PO SCH ×2 (12:00→17:30)
[2022-05-01] MEDS ORDERED: Sertraline 50 MG Tab PO SCH (16:00)
[2022-05-01] MEDS ORDERED: Ezetimibe 10 MG Tab PO SCH (16:00)
[2022-05-01] MEDS ORDERED: Mirtazapine 15 MG Tab PO SCH (21:00)
[2022-05-02] MEDS ORDERED: Temazepam 15 MG Cap PO PRN (00:34)
[2022-05-02] MEDS: Aspirin 81 MG Tab.Chew PO SCH (08:52)
[2022-05-02] MEDS: Metoprolol Succinate 25 MG Tab.ER PO SCH (08:52)
[2022-05-02] MEDS: Enoxaparin 30 MG/0.3 ML Syringe SUBCUT SCH (08:56)
[2022-05-02] MEDS: Furosemide 40 MG/4 ML VIAL IVPUSH SCH (08:56)
[2022-05-02] MEDS ORDERED: CILOSTAZOL 100 MG PO SCH (21:00)
== END 2022-05-02 14:20 | disposition home or self-care (01) | DRG 194 ==
LOC: JD.ED 18:08 → JD.ICU 05-01 00:13 → UNDOADMIN 05-01 00:13 → JD.ICU 05-01 00:23 → UNDOADMIN 05-02 00:23 → JD.ICU 05-02 12:00 → UNDODISIN 05-02 20:30
PROVIDERS: ADMIT Internal Medicine; ATTEND Internal Medicine
DX: I50.23 Acute on chronic systolic (congestive) heart failure (principal); I21.4 Non-ST elevation (NSTEMI) myocardial infarction; J44.9 Chronic obstructive pulmonary disease, unspecified; I25.2 Old myocardial infarction; Z95.5 Presence of coronary angioplasty implant and graft; F17.210 Nicotine dependence, cigarettes, uncomplicated; Z20.822 Contact with and (suspected) exposure to COVID-19; H54.7 Unspecified visual loss; I25.10 Atherosclerotic heart disease of native coronary artery without angina pectoris; N39.3 Stress incontinence (female) (male); F41.9 Anxiety disorder, unspecified; E03.9 Hypothyroidism, unspecified; Z85.3 Personal history of malignant neoplasm of breast; Z79.82 Long term (current) use of aspirin; Z79.899 Other long term (current) drug therapy; Z88.0 Allergy status to penicillin; Z88.6 Allergy status to analgesic agent; Z88.1 Allergy status to other antibiotic agents; Z88.8 Allergy status to other drugs, medicaments and biological substances; Z86.19 Personal history of other infectious and parasitic diseases
CPT/HCPCS: 36415; 36600; 71046; 71046-26; 71275; 71275-26; 80048; 80053; 82803; 83880; 84484; 85025; 85379; 86140; 93005; 93306; 94640; A9270-GY; J1650; J1940; J2060; J2930; J3490; J7620-GY; Q9967; U0002

== ENCOUNTER 2023-11-30 19:37 | Emergency (ER) | payer BC ==
[2023-11-30] MEDS: Acetaminophen/HYDROcodone 325-5 MG Tab PO ONE (21:14)
== END 2023-11-30 22:28 | disposition home or self-care (01) ==
LOC: JD.ED 19:37
DX: S82.141A Displaced bicondylar fracture of right tibia, initial encounter for closed fracture (principal); J44.9 Chronic obstructive pulmonary disease, unspecified; I50.9 Heart failure, unspecified; I25.2 Old myocardial infarction; E03.9 Hypothyroidism, unspecified; G62.9 Polyneuropathy, unspecified; Z88.8 Allergy status to other drugs, medicaments and biological substances; Z88.0 Allergy status to penicillin; Z88.6 Allergy status to analgesic agent; Z88.1 Allergy status to other antibiotic agents; Z79.899 Other long term (current) drug therapy; Z79.51 Long term (current) use of inhaled steroids; Z86.19 Personal history of other infectious and parasitic diseases; Z87.891 Personal history of nicotine dependence; W01.0XXA Fall on same level from slipping, tripping and stumbling without subsequent striking against object, initial encounter
CPT/HCPCS: 73562; 99284; A9270; 99283

== ENCOUNTER 2024-07-31 14:15 | Emergency (ER) | payer BC ==
[2024-07-31 14:50] LABS: BASOPHILS ABSOLUTE AUTO 0.1 K/mm3 (0.0-0.2); BASOPHILS PERCENT AUTO 0.5 % (0.0-1.0); EOSINOPHILS ABSOLUTE AUTO 0.1 K/mm3 (0.0-0.4); EOSINOPHILS PERCENT AUTO 0.9 % (0.0-6.0); HEMATOCRIT 45.5 % (37.0-47.0); IMMATURE GRAN ABSOLUTE AUTO 0.43 K/mm3 (0.00-0.05); IMMATURE GRAN PERCENT AUTO 4.1 % (0.0-0.4); LYMPHOCYTES ABSOLUTE AUTO 1.8 K/mm3 (1.0-4.8); MEAN CORPUSCULAR HEMOGLOBIN 29.7 pg (28.0-32.0); MEAN CORPUSCULAR VOLUME 90.1 fl (83.0-99.0); MEAN PLATELET VOLUME 9.3 fl (9.4-12.3); MONOCYTES ABSOLUTE AUTO 0.7 K/mm3 (0.0-0.8); MONOCYTES PERCENT AUTO 6.3 % (0.0-8.0); NEUTROPHILS ABSOLUTE AUTO 7.6 K/mm3 (1.8-7.7); NEUTROPHILS PERCENT AUTO 71.2 % (41.0-71.0); PLATELET COUNT,PLT 276 K/mm3 (150-400); RED BLOOD CELL COUNT 5.05 M/mm3 (4.10-5.30); WHITE BLOOD CELL COUNT,WBC 10.61 K/mm3 (3.9-11.3)
[2024-07-31] MEDS: Albuterol/Ipratropium 3.0-0.5 MG/3 ML Neb Soln NEB ONE (15:04)
[2024-07-31 15:25] LABS: A/G RATIO 0.8 (1-2); ALBUMIN 3.4 g/dl (3.4-5.0); ANION GAP 10.9 (5-15); BILIRUBIN TOTAL 0.6 mg/dL (0.2-1.0); BUN/CREATININE RATIO 33.8 (14-18); CREATININE 0.8 mg/dL (0.55-1.02); EST CRCL DRUG DOSING (CG) 64.58 mL/min; POTASSIUM,K 3.9 mEq/L (3.5-5.1); PROTEIN TOTAL,TP 7.8 g/dl (6.4-8.2)
[2024-07-31] MEDS: Heparin Sodium 5,000 Units/ML Vial IVPUSH ONE (16:23)
[2024-07-31] MEDS: Heparin Sodium/D5W 250 ML IV SCH (16:23)
== END 2024-07-31 18:00 | disposition critical access hospital (66) ==
LOC: JD.ED 14:15
DX: I21.4 Non-ST elevation (NSTEMI) myocardial infarction (principal); I25.2 Old myocardial infarction; J44.9 Chronic obstructive pulmonary disease, unspecified; E03.9 Hypothyroidism, unspecified; Z95.5 Presence of coronary angioplasty implant and graft; F17.200 Nicotine dependence, unspecified, uncomplicated; Z88.0 Allergy status to penicillin; Z88.6 Allergy status to analgesic agent; Z88.8 Allergy status to other drugs, medicaments and biological substances; Z79.51 Long term (current) use of inhaled steroids; Z79.890 Hormone replacement therapy; Z79.899 Other long term (current) drug therapy
CPT/HCPCS: 36415; 71045; 80053; 83880; 84484; 85025; 85379; 85730; 93005; 96365; 96366; 99285; J1644; J7620-GY

== ENCOUNTER 2025-03-13 03:31 | Emergency (ER) | payer BC ==
[2025-03-13 04:32] LABS: BASOPHILS ABSOLUTE AUTO 0.0 K/mm3 (0.0-0.2); BASOPHILS PERCENT AUTO 0.2 % (0.0-1.0); EOSINOPHILS ABSOLUTE AUTO 0.0 K/mm3 (0.0-0.4); EOSINOPHILS PERCENT AUTO 0.0 % (0.0-6.0); IMMATURE GRAN ABSOLUTE AUTO 0.04 K/mm3 (0.00-0.05); IMMATURE GRAN PERCENT AUTO 0.4 % (0.0-0.4); LYMPHOCYTES ABSOLUTE AUTO 0.9 K/mm3 (1.0-4.8); LYMPHOCYTES PERCENT AUTO 9.4 % (24.0-44.0); MEAN PLATELET VOLUME 9.7 fl (9.4-12.3); MONOCYTES ABSOLUTE AUTO 0.5 K/mm3 (0.0-0.8); MONOCYTES PERCENT AUTO 5.2 % (0.0-8.0); NEUTROPHILS ABSOLUTE AUTO 7.8 K/mm3 (1.8-7.7); NEUTROPHILS PERCENT AUTO 84.8 % (41.0-71.0); NRBC ABSOLUTE 0.00 (0.00-0.02); NRBC PERCENT 0.0 % (0.0-0.2); PLATELET COUNT,PLT 210 K/mm3 (150-400); RED BLOOD CELL COUNT 4.49 M/mm3 (4.10-5.30); WHITE BLOOD CELL COUNT,WBC 9.23 K/mm3 (3.9-11.3)
[2025-03-13 04:38] LABS: APPEARANCE,URINE CLEAR (Clear); GLUCOSE,URINE NEGATIVE (Negative); OCCULT BLOOD,URINE 1+ (Negative)
[2025-03-13 04:53] LABS: SQUAMOUS EPITHELIAL CELLS,UR 0-5 /hpf (0-5)
[2025-03-13 04:55] LABS: A/G RATIO 1.1 (1-2); ALANINE AMINOTRANSFERASE,ALT 29.0 U/L (14-59); ASPARTATE AMNIOTRANSFERASE,AST 28.0 U/L (15-37); BILIRUBIN TOTAL 0.7 mg/dL (0.2-1.0); BLOOD UREA NITROGEN,BUN 9.0 mg/dL (7-18); CARBON DIOXIDE,CO2 19.0 mEq/L (21-32); CHLORIDE,CL 94.0 mEq/L (98-107); CREATININE 1.2 mg/dL (0.55-1.02); EST CRCL DRUG DOSING (CG) 42.51 mL/min; ESTIMATED GFR 52.0 mL/min (>60); GLUCOSE RANDOM 141.0 mg/dL (70-99); POTASSIUM,K 3.0 mEq/L (3.5-5.1); PROTEIN TOTAL,TP 7.4 g/dl (6.4-8.2); SODIUM,NA 138.0 mEq/L (136-145)
[2025-03-13] MEDS ORDERED: Sodium Chloride 0.9% 10 ML Syringe FLUSH PRN (05:00)
[2025-03-13] MEDS: Ondansetron 4 MG/2 ML SDV IVPUSH ONE ×3 (05:00→08:18)
[2025-03-13] MEDS: Sodium Chloride 0.9% 10 ML Syringe FLUSH PRN (05:49)
[2025-03-13] MEDS: Iopamidol 612 MG/ML 100 ML Bottle IVPUSH ONE (05:49)
[2025-03-13] MEDS: Alum Hydrox/Mag Hydrox/Simeth 30 ML, Lidocaine 2% 15 ML PO ONE (07:26)
[2025-03-13] MEDS: Albuterol 0.083% 2.5 MG/3 ML Neb Soln NEB ONE (07:45)
== END 2025-03-13 13:06 | disposition home or self-care (01) ==
LOC: JD.ED 03:31
DX: K80.20 Calculus of gallbladder without cholecystitis without obstruction (principal); E87.6 Hypokalemia; R94.4 Abnormal results of kidney function studies; Z88.0 Allergy status to penicillin; Z88.6 Allergy status to analgesic agent; Z88.1 Allergy status to other antibiotic agents; Z79.51 Long term (current) use of inhaled steroids; Z79.899 Other long term (current) drug therapy; Z79.02 Long term (current) use of antithrombotics/antiplatelets; Z79.890 Hormone replacement therapy
CPT/HCPCS: 36415; 74177; 80053; 81001; 83690; 83735; 85025; 93005; 94640; A9270; J2405; J3480; J7030; J7613; Q0169; Q9967; 93010; 96361; 96365; 96366; 96375; 96376; 99284; 99284-25

== ENCOUNTER 2025-03-14 05:03 | Emergency (ER) | payer BC ==
[2025-03-14 05:45] LABS: BASOPHILS ABSOLUTE AUTO 0.0 K/mm3 (0.0-0.2); BASOPHILS PERCENT AUTO 0.1 % (0.0-1.0); EOSINOPHILS ABSOLUTE AUTO 0.0 K/mm3 (0.0-0.4); EOSINOPHILS PERCENT AUTO 0.0 % (0.0-6.0); IMMATURE GRAN ABSOLUTE AUTO 0.05 K/mm3 (0.00-0.05); IMMATURE GRAN PERCENT AUTO 0.6 % (0.0-0.4); LYMPHOCYTES ABSOLUTE AUTO 0.9 K/mm3 (1.0-4.8); LYMPHOCYTES PERCENT AUTO 10.5 % (24.0-44.0); MEAN PLATELET VOLUME 9.8 fl (9.4-12.3); MONOCYTES ABSOLUTE AUTO 0.6 K/mm3 (0.0-0.8); MONOCYTES PERCENT AUTO 7.8 % (0.0-8.0); NEUTROPHILS ABSOLUTE AUTO 6.5 K/mm3 (1.8-7.7); NEUTROPHILS PERCENT AUTO 81.0 % (41.0-71.0); NRBC ABSOLUTE 0.00 (0.00-0.02); NRBC PERCENT 0.0 % (0.0-0.2); PLATELET COUNT,PLT 209 K/mm3 (150-400); RED BLOOD CELL COUNT 4.17 M/mm3 (4.10-5.30); WHITE BLOOD CELL COUNT,WBC 8.07 K/mm3 (3.9-11.3)
[2025-03-14 06:06] LABS: A/G RATIO 1.0 (1-2); ALANINE AMINOTRANSFERASE,ALT 26.0 U/L (14-59); ASPARTATE AMNIOTRANSFERASE,AST 26.0 U/L (15-37); BILIRUBIN TOTAL 0.5 mg/dL (0.2-1.0); BLOOD UREA NITROGEN,BUN 6.0 mg/dL (7-18); CARBON DIOXIDE,CO2 20.0 mEq/L (21-32); CHLORIDE,CL 98.0 mEq/L (98-107); CREATININE 1.0 mg/dL (0.55-1.02); EST CRCL DRUG DOSING (CG) 46.72 mL/min; ESTIMATED GFR 64.0 mL/min (>60); GLUCOSE RANDOM 108.0 mg/dL (70-99); PROTEIN TOTAL,TP 6.7 g/dl (6.4-8.2); SODIUM,NA 138.0 mEq/L (136-145)
[2025-03-14 06:14] LABS: POTASSIUM,K 3.2 mEq/L (3.5-5.1)
[2025-03-14] MEDS: Ondansetron 4 MG/2 ML SDV IVPUSH ONE (08:53)
[2025-03-14] MEDS: Lactated Ringers 500 ML IV ONE (08:53)
[2025-03-14] MEDS: fentaNYL 100 MCG/2 ML SDV IVPUSH ONE (08:54)
[2025-03-14] MEDS: Sodium Chloride 0.9% 10 ML Syringe FLUSH PRN (08:55)
== END 2025-03-14 10:19 | disposition home or self-care (01) ==
LOC: JD.ED 05:03
DX: K80.50 Calculus of bile duct without cholangitis or cholecystitis without obstruction (principal); E03.9 Hypothyroidism, unspecified; Z88.0 Allergy status to penicillin; Z79.899 Other long term (current) drug therapy; Z79.890 Hormone replacement therapy; Z86.16 Personal history of COVID-19
CPT/HCPCS: 36415; 76705; 80053; 83690; 85025; 93005; 96361; 96374; 96375; 99284; J2405; J3010; J7120; 93010